=== PATIENT | male | born 1935 | race Caucasian/White ===

== ENCOUNTER 2018-02-01 15:30 | Inpatient (IN) | payer MEDICARE ==
[~2018-02-01] VITALS: Ht 182.9 cm; Wt 109.3 kg
[~2018-02-01 15:30] MED LIST: ALLOPURINOL100 MG PO; ASPIRIN325 MG PO; ASPIRIN81 MG PO; ATORVASTATIN CA10 MG PO; BACTRIM DS TAB1 EACH PO; COUMADIN5 MG PO; DIFLUCAN200 MG PO; FEOSOL45 MG PO; FERROUS GLUCON324 M1 PO; FINASTERIDE5 MG PO; FLOMAX0.4 MG PO; FUROSEMIDE40 MG PO; GLIMEPIRIDE2 MG PO; KEFLEX500 MG PO; LISINOPRIL10 MG PO; METOPROLOL TART25 MG PO; MINOCYCLINE HCL50 MG PO; NIACIN500 M2 PO; PIOGLITAZONE HC45 MG PO; POTASSIUM CHLO10 ME1 PO; RESPIMAT; TRICOR145 MG PO; TYLENOL WITH C1 EACH PO; VITAMIN D250000 UNIT
--- OUTSIDE RECORDS SUMMARY | 2018-02-01 15:33 | XMS REPORT | Continuity of Care Document ---
Author Author [employer] Address Unknown Phone Unavailable Problems Problem Status Onset Date Classification Date Reported Comments Source HOSPITAL D/C FOLLOW UP Active 01/23/2018 [facility] SOB/CP Active 01/07/2018 [facility] AORTIC VALVE STENOSIS CRITICAL Active 01/07/2018 [facility] Medications Medication Details Route Status Patient Instructions Ordering Provider Order Date Source Allergies, Adverse Reactions, Alerts Substance Category Reaction Severity Reaction type Status Date Reported Comments Source iodine topical Assertion Drug allergy Active [facility] Post Immunizations Immunization Date Given Site Status Last Updated Comments Source tuberculin purified protein derivative 02/05/2006 Left Arm completed [facility] Post pneumococcal 23-valent vaccine 02/05/2006 Right arm completed Besser [facility] Results Order Name Results Value Reference Range Date Interpretation Comments Source Abdomen/Pelvis wo IV contrast CT Abdomen/Pelvis wo IV contrast CT EXAM: CT ABDOMEN AND PELVIS WITHOUT CONTRAST DATE: 01/18/2018 at 1034 hours INDICATION: - right groin hematoma and concern for retroperitoneal hematoma ADDITIONAL INFORMATION: None. COMPARISON: 01/10/2018 at 1248 hours TECHNIQUE: Volumetric CT of the abdomen and pelvis is acquired without intravenous contrast. Axial, coronal and sagittal images are provided. IV contrast: None. Enteric contrast: None. DLP: 1041.90 mGy-cm FINDINGS: Lines, tubes and hardware: * TAVR. * Pacemaker leads in the right atrium and ventricle. * Surgical lonny overlying the right abdomen and inguinal region. * Surgical clips are seen in the right inguinal region. * Cotto catheter balloon tip is in the urinary bladder lumen. Lower thorax: * Trace left pleural effusion. * Bibasilar atelectasis. Liver: Normal. Biliary tree: No intra- or extrahepatic biliary ductal dilation. Gallbladder: Normal. Pancreas: Normal. Spleen: Normal. Adrenals: Normal. Kidneys and ureters: * Bilateral probable renal cysts are again noted. * Right perirenal high density collection with peripheral calcification, likely remote hematoma is unchanged.. Bladder: * Decompressed by Cotto catheter. * Excreted material is noted from prior contrast administration. Reproductive organs: Prostatomegaly. Seminal vesicles are symmetric. Gastrointestinal tract: Stomach: Normal. Small bowel: Normal. Colon: Uninflamed diverticula (). Appendix: Normal. Peritoneum, mesentery and retroperitoneum: * No retroperitoneal hematoma. * No free air, ascites or loculated fluid. Lymph nodes: Normal. Vasculature: Aorta and branches: Vascular calcifications. IVC and veins: Normal. Portal vasculature: Normal. Bones: Regional skeleton is unchanged. Soft tissues: * Right inguinal air and high density fluid in keeping with hematoma is 10.7 x 7.2 x 4.9 cm (\R\200 mL; , ). This is contained within the left inguinal region and does not extend into the abdominopelvic cavity. * Mild soft tissue edema is noted elsewhere. IMPRESSION: 1. No retroperitoneal hematoma Right inguinal hematoma appears confined without extension into the abdominopelvic cavity. 2. No other significant change since prior exam. 3. Hardware as above. 01/18/2018 - - Read by: Walker De La Garza MD Dictated Date/time: 01/18/18 17:12 Electronically Signed by: Walker De La Garza MD 01/18/18 17:25 FINAL REPORT [facility] Chest 1view DX Chest 1view DX EXAM: XR CHEST 1 VIEW DATE: 01/18/2018 5:53 AM CDT INDICATION: hypotension - hypotension COMPARISON: January 16, 2018 TECHNIQUE: AP chest. IMPRESSION: 1. Left subclavian AICD is unchanged. 2. Stable postsurgical changes following TAVR. The cardiomediastinal silhouette is stable in size. Mildly ectatic descending thoracic aorta. 3. Bilateral prominent lung reticulations and peribronchial cuffing are without significant change, suggestive of pulmonary edema. 4. No pleural effusions pneumothorax. 01/18/2018 - - Read by: Jacque Mendoza MD Dictated Date/time: 01/18/18 09:44 Electronically Signed by: Jacque Mendoza MD 01/18/18 09:45 FINAL REPORT [facility] Chest 1view DX Chest 1view DX EXAM: XR CHEST 1 VIEW DATE: 01/16/2018 6:53 PM CDT INDICATION: Arrhythmias - s/p CHANDA COMPARISON: 02/12/2018 TECHNIQUE: AP chest FINDINGS: Lines and tubes: Single-lead pacemaker and AV are visualized. Lungs and pleura: Minimal lung congestion visualized, unchanged. Heart and mediastinum: The heart size is unchanged. The mediastinal contours are normal. Bones: No acute bony abnormality is identified. IMPRESSION: No new abnormality visualized. 01/16/2018 - - Read by: Darryn Kenyon MD Dictated Date/time: 01/16/18 20:23 Electronically Signed by: Darryn Kenyon MD 01/16/18 20:24 FINAL REPORT [facility] Chest 1view DX Chest 1view DX EXAM: XR CHEST 1 VIEW DATE: 01/16/2018 3:28 PM CDT INDICATION: Heart failure - S/P chanda COMPARISON: January 07, 2018 TECHNIQUE: AP chest FINDINGS: Lines and tubes: Pacemaker again visualized, unchanged. Lungs and pleura: Mild lung congestion visualized. Heart and mediastinum: The heart size is enlarged, unchanged. The mediastinal contours are normal. Bones: No acute bony abnormality is identified. IMPRESSION: Mild lung congestion and cardiomegaly. 01/16/2018 - - Read by: Darryn Kenyon MD Dictated Date/time: 01/16/18 17:57 Electronically Signed by: Darryn Kenyon MD 01/16/18 17:58 FINAL REPORT [facility] Abdomen AP DX Abdomen AP DX EXAM: XR ABDOMEN 1 VIEW DATE: 01/15/2018 7:51 PM CDT INDICATION: - constipation COMPARISON: CTA of the chest abdomen and pelvis from 01/10/2018 at 1248 hours TECHNIQUE: AP abdomen DISCUSSION: The costophrenic angles are sharp. No focal opacity seen in the lung bases. Gas-filled loops of bowel are present in a nonobstructive pattern. A moderate amount of stool is seen within the ascending colon. A large thin-walled calcific focus is seen in the right renal fossa. This was described on the CTA of the chest, abdomen and pelvis. Smaller calcifications are seen adjacent to this focus. No acute bony abnormality is seen. IMPRESSION: 1. Thin-walled calcific focus in the right renal fossa which may represent an old hematoma. 2. Moderate amount of stool within the ascending colon. 3. Nonobstructive bowel gas pattern. 01/15/2018 - - Read by: Claribel Posadas DO Dictated Date/time: 01/15/18 19:51 Electronically Signed by: Claribel Posadas DO 01/15/18 19:58 FINAL REPORT [facility] Heart/coronary art TAVR CTA Heart/coronary art TAVR CTA EXAM: CARDIAC COMPUTED TOMOGRAPHY ANGIOGRAPHY DATE: January 10, 2018 INDICATION: Aortic stenosis. COMPARISON: None TECHNIQUE: Contrast imaging was performed on a Maik [address] scanner utilizing a single breath hold. Retrospective ECG gating was performed. Images were reformatted at 0.5 mm intervals and sent to an independent workstation for interpretation. 125 ml of Visipaque 320 IV contrast was delivered via an 18 gauge IV catheter utilizing a power injector at 5 cc/sec and followed by 50 cc of normal saline bolus as a chaser. OVERALL STUDY QUALITY: Good FINDINGS: Aortic valve: Trileaflet, heavily and symmetrically calcified. Aortic valve area: 1.1 sq cm. Coronary Arteries: This patient has a right dominant system with the origin of the coronary arteries being normal. Left main: Normal caliber vessel, which contains calcified atheroma of the proximal and distal segments. There is less than 50% stenosis of the distal segment of the left main, just prior to the bifurcation to the LAD and left circumflex arteries. LAD: Normal caliber vessel giving rise to diagonal branches. The vessel displays a stent deployed over extensively calcified atheroma of the the proximal segment, without evidence of significant in-stent restenosis. LAD distal to the stent contains a few scattered calcified atheroma, none of them resulting into a flow-limiting stenosis. LCx: Normal caliber, nondominant vessel, giving rise to obtuse marginal branch. The vessel contains diffuse, mostly calcified atheroma, not resulting into a flow-limiting stenosis. RCA: Normal caliber vessel, which bifurcates into the PDA posterolateral branches. There is a patent stent noted at the distal segment of the vessel, just cranial to the bifurcation. There are diffusely distributed, primarily calcified atheroma, throughout entire length of the vessel, without resulting into a flow-limiting stenosis. Myocardium Appearance \T\ Function: Left ventricle normal in size, with mild impairment of systolic function. An AICD lead is noted in the right heart chambers. Ejection Fraction: 42% CZQ=574 cc ESV=82 cc SV=59 cc Lung ordoñez to the extent visualized in limited study: Please see radiologist interpretation for extracardiac findings. IMPRESSION: Aortic valve disease. Coronary artery disease, status post PCI of the LAD and RCA, without evidence of flow-limiting stenosis. 01/09/2018 - - Read by: Braden Lee MD Dictated Date/time: 01/10/18 17:02 Electronically Signed by: Braden Lee MD 01/10/18 17:20 FINAL REPORT [facility] Chest/Abd/Pelvis TAVR CTA Chest/Abd/Pelvis TAVR CTA EXAM: VIR CT angiogram thorax abdomen and pelvis. TAVR protocol INDICATION: 82 years old Male with aortic stenosis presents for a CT angiogram. TECHNIQUE: Following the administration of intravenous contrast, 3 mm slices from the thoracic inlet through the pubic symphysis were obtained in arterial phase. Images are reviewed on 3D workstation. COMPARISON: None FINDINGS: Vascular Measurements: Ascending aorta: 33 mm x 33 mm Aortic arch: 34 mm x 32 mm Mid-descending thoracic aorta: 26 mm x 26 mm Aorta at diaphragm: 26 mm x 25 mm Aorta at celiac axis: 25 mm x 23 mm Aorta at superior mesenteric artery: 22 mm x 21 mm Mid-infrarenal aorta: 17 mm x 16 mm Right common iliac artery: 12 mm x 11.3 mm Right external iliac artery: 8.8 mm x 8.8 mm Right common femoral artery: 8.8 mm x 8.8 mm Left common iliac artery: 13 mm x 11.2 mm Left external iliac artery: 7 mm x 7 mm Left common femoral artery: 10 mm x 8.1 mm Right subclavian artery: 7 mm x 7.3 mm Left subclavian artery: 7.0 mm x 7.1 mm Calcific scores: Ascending aorta: 0 Aortic arch: 1 Descending thoracic aorta: 1 Aorta at diaphragm: 1 Suprarenal abdominal aorta: 1 Infrarenal abdominal aorta: 2 0 :none 1 :punctate calcifications 2 : <50% of vessel circumference is confluent calcification 3 : >50% of vessel circumference is confluent calcification Other vascular findings: Ascending aorta: Unremarkable Aortic arch: Unremarkable, branches appear normal Descending aorta: Unremarkable Abdominal aorta: Unremarkable Celiac artery: Unremarkable, branches appear normal Superior mesenteric artery: Unremarkable, branches appear normal Inferior mesenteric artery: Unremarkable Renal arteries: Unremarkable Bilateral common iliac, internal and external iliac, common femoral arteries: Unremarkable Nonvascular findings: Cardiovascular: The pulmonary arteries are well seen through the segmental level. No cardiomegaly. No pericardial effusion. Lymph Nodes: No adenopathy by CT size criteria. Mediastinum: No significant abnormality. Excessive fat in the mediastinum. Lungs demonstrate minimal dependent changes Hepatobiliary: Normal Gallbladder: Normal Pancreas: Unremarkable Spleen: Unremarkable Suprarenal glands: Unremarkable Kidneys: Bilateral multiple large renal cysts. 10 x 4.3 cm cystic structure with wall calcification anterior to the right kidney. Bladder: Normal. Reproductive organs: Unremarkable Gastrointestinal tract: Stomach: Normal. Small bowel: Normal. Colon: Normal. Peritoneum, mesentery and retroperitoneum: No free air, ascites or loculated fluid. Lymph nodes: Normal. Bones: No acute abnormality. Soft tissues: Normal. IMPRESSION: 1. CTA performed for TAVR planning, with measurements as indicated above. 2. Multiple renal cysts bilaterally. 3. Cystic structure anterior to the right kidney with calcified hernandez, may represent a old hematoma. I have reviewed these images and agree with the above findings. 01/09/2018 - - Read by: Fletcher De Dios MD Dictated Date/time: 01/10/18 17:37 Electronically Signed by: Fletcher De Dios MD 01/10/18 17:57 FINAL REPORT [facility] Retroperitoneal limited US Retroperitoneal limited US EXAM: US RENAL DATE: 01/08/2018 4:34 PM CDT INDICATION: Renal insufficiency - ckd ADDITIONAL INFORMATION: None. COMPARISON: February 08, 2012 TECHNIQUE: Multiplanar grayscale and color Doppler ultrasound of the kidneys and urinary bladder. DISCUSSION: Right kidney: Hydronephrosis: None. Size: 1.5 x 6.5 x 9.4 cm. Echogenicity: Normal. Calculi: None. Cysts: Multiple simple cysts Masses: None. Left kidney: Hydronephrosis: None. Size: 14.9 x 3.6 x 10 point set cm. Echogenicity: Normal. Calculi: None. Cysts: Multiple simple cysts Masses: None. Bladder: Normal. IMPRESSION: 1. Polycystic kidneys containing multiple simple renal cysts. Largest cyst measures 5 cm involving the left kidney. 01/08/2018 - - Read by: Kodi Trevino MD Dictated Date/time: 01/09/18 07:45 Electronically Signed by: Kodi Trevino MD 01/09/18 07:48 FINAL REPORT [facility] Chest 1view DX Chest 1view DX EXAM: XR CHEST 1 VIEW DATE: 01/07/2018 11:22 AM CDT INDICATION: - Chest pain, SOB COMPARISON: Chest x-ray 03/09/2014 TECHNIQUE: AP chest. UT SECTION: ER FINDINGS: Lines, tubes and hardware: Note made of single lead AICD device. Lungs and pleura: No focal consolidation. No pleural effusion or pneumothorax. Heart and mediastinum: The heart size is normal for technique. Note made of tortuous aorta with aortic arch calcifications. Bones: No acute abnormality. IMPRESSION: No acute radiographic abnormality of the chest. 01/07/2018 - - This report was dictated by a Senior Technical Analyst/Fellow. I have personally reviewed the images as well as the Resident's interpretation and agree with the findings. Read by: Sukumar Koenig MD Resident: Sukumar Koenig MD Dictated Date/time: 01/07/18 11:39 Electronically Signed by: Terry Domingo MD 01/07/18 11:51 FINAL REPORT [facility] Vital Signs Vital Sign Value Date Comments Source Encounters Location Location Details Encounter Type Encounter Number Reason For Visit Attending Provider ADM Date DC Date Status Source [facility] Outpatient Imaging - Post Outpt Diag Services [id number] Colby Arambula 03/09/2014 03/10/2014 [facility] Post Outpatient [id number] GEORGE GAMBOA 01/29/2018 [facility] Outpatient [id number] GEORGE GAMBOA 02/19/2018 [facility] Procedures Procedure Code Date Perfomer Comments Source
--- OUTSIDE RECORDS SUMMARY | 2018-02-01 15:33 | XMS REPORT | Summary of Care ---
Author Organization Unknown Address Unknown Phone Unavailable Encounter HQ Syedsruthir_marina([facility]) [id number] Date(s): 03/09/14 - 03/09/14 [facility] Outpatient Imaging - [address] [address]- [place] Discharge Disposition: Home Physician Attending: Colby Arambula MD Reason for Visit 786.5 - CHEST PAIN Problem List No data available for this section Allergies, Adverse Reactions, Alerts Substance Reaction Severity Status iodine topical Active Medications No data available for this section Medications Administered During Your Visit No data available for this section Immunizations Vaccine Date Refusal Reason pneumococcal 23-valent vaccine 02/05/06 tuberculin purified protein derivative 02/05/06
[2018-02-01 17:39] LABS: BASOPHILS % 0.2 % (0.0-1.0); EOSINOPHILS # (AUTO) 0.2 (0.0-0.4); EOSINOPHILS % 4.2 % (0.0-6.0); HEMATOCRIT 29.7 % (38.2-49.6); HEMOGLOBIN 9.9 g/dL (14.0-18.0); LYMPHOCYTES # (AUTO) 1.2 (1.0-3.2); LYMPHOCYTES % 21.5 % (18.0-39.1); MEAN CORPUSCULAR HEMOGLOBIN 31.7 pg (28-32); MEAN CORPUSCULAR HGB CONC 33.3 g/dL (31-35); MEAN CORPUSCULAR VOLUME 95.2 fL (81-99); MONOCYTES # (AUTO) 0.7 (0.2-0.8); MONOCYTES % 12.5 % (4.4-11.3); NEUTROPHILS # (AUTO) 3.3 (2.1-6.9); NEUTROPHILS % 60.9 % (38.7-80.0); PLATELET COUNT 244 x10e3/uL (140-360); RED BLOOD COUNT 3.12 x10e6/uL (4.3-5.7); RED CELL DISTRIBUTION WIDTH 17.3 % (11.7-14.4)
[2018-02-01 17:47] LABS: INR 1.04; PROTHROMBIN TIME 14.5 seconds (11.9-14.5)
[2018-02-01 17:48] LABS: PARTIAL THROMBOPLASTIN TIME 28.2 seconds (23.8-35.5)
[2018-02-01 17:56] LABS: ALBUMIN/GLOBULIN RATIO 0.7 (0.8-2.0); ANION GAP 21.1 mmol/L (8-16); CALCIUM 9.6 mg/dL (8.4-10.2); CREATININE, SERUM 1.64 mg/dL (0.72-1.25); POTASSIUM 3.1 mmol/L (3.5-5.1)
[2018-02-01 18:04] LABS: CREATINE KINASE MB 0.7 ng/mL (0-5.0)
[2018-02-01] MEDS ORDERED: ASPIRIN 81 MG CHEW TAB PO ONE (18:30)
[2018-02-01] MEDS ORDERED: POTASSIUM CHLORIDE 20 MEQ TAB CR PO STA (18:43)
[2018-02-01] MEDS ORDERED: AMLODIPINE BESYL5 MG PO (18:52)
[2018-02-01] MEDS ORDERED: DOCUSATE SODIU100 MG PO (18:52)
[2018-02-01] MEDS ORDERED: PRANDIN1 MG PO (18:52)
[2018-02-01] MEDS ORDERED: TORSEMIDE10 MG PO (18:52)
[2018-02-01] MEDS ORDERED: CLOPIDOGREL75 MG PO (18:52)
--- NOTE | 2018-02-01 19:23 | Diagnostic Imaging Report ---
EXAMINATION: CHEST SINGLE (PORTABLE) INDICATION: Low blood pressure. ^CHEST PAIN ^[id number] ^1716 ^Y COMPARISON: Chest radiograph 06/06/2016 FINDINGS: AP view TUBES and LINES: Single-lead AICD. LUNGS: Lungs are well inflated. Lungs are clear. There is no evidence of pneumonia or pulmonary edema. PLEURA: No pleural effusion or pneumothorax. HEART AND MEDIASTINUM: The cardiomediastinal silhouette is unremarkable. BONES AND SOFT TISSUES: No acute osseous lesion. Soft tissues are unremarkable. UPPER ABDOMEN: No free air under the diaphragm. IMPRESSION: No acute thoracic abnormality. Signed by: DR. Jr Reid MD on 02/01/2018 7:20 PM
--- OUTSIDE RECORDS SUMMARY | 2018-02-01 19:33 | XMS REPORT ---
Author Author [facility] Address Unknown Phone Unavailable Care Team Providers Care Chemical Preparer Name Role Phone uLiza BAXTER Unavailable Unavailable Problems This patient has no known problems. Allergies, Adverse Reactions, Alerts This patient has no known allergies or adverse reactions. Medications This patient has no known medications. Results Test Description Test Time Test Comments Text Results Atomic Results Result Comments CHEST SINGLE (PORTABLE) 2018-02-01 19:19:00 [place] [address] Patient Name: KIMBERLEE PUJA MR #: [id number] : 1935 Age/Sex: 82/M Req #: [id number] Adm Physician: Ordered by: ANNE BAXTER MD Report #: [id number] Location: ER Room/Bed: Procedure: [id number] DX/CHEST SINGLE (PORTABLE) Exam Date: 02/01/18 Exam Time: 1716 REPORT STATUS: Signed EXAMINATION: CHEST SINGLE (PORTABLE) IND ICATION: Low blood pressure. CHEST PAIN [id number] 1716 Y COMPARISON: Chest radiograph 06/06/2016 FINDINGS: AP view TUBES and LINES: Single-lead AICD. LUNGS: Lungs are well inflated. Lungs are clear. There is no evidence of pneumonia or pulmonary edema. PLEURA: No pleural effusion or pneumothorax. HEART AND MEDIASTINUM: The cardiomediastinal silhouette is unremarkable. BONES AND SOFT TISSUES: No acute osseous lesion. Soft tissues are unremarkable. UPPER ABDOMEN: No free air under the diaphragm. IMPRESSION: No acute thoracic abnormality. Signed by: DR. Jr Marino MD on 02/01/2018 7:20 PM Dictated By: JR MARINO MD 19 Transcribed By: ADALID on 02/01/181919 COPY TO: ANNE BAXTER MD
[2018-02-01 20:17] VITALS: BP 124/67
[2018-02-01 20:20] VITALS: BP 124/67
[2018-02-01 20:30] VITALS: BP 124/67
[2018-02-01] MEDS: ATORVASTATIN 40 MG TAB PO SCH (21:19)
[2018-02-01] MEDS: FERROUS SULFATE 325 MG TAB PO SCH (21:19)
[2018-02-02] VITALS (8 sets, daily range): BP systolic 91–132; BP diastolic 52–64
[2018-02-02 02:53] LABS: CREATINE KINASE MB 0.6 ng/mL (0-5.0)
[2018-02-02 06:36] LABS: BASOPHILS % 0.4 % (0.0-1.0); EOSINOPHILS # (AUTO) 0.2 (0.0-0.4); EOSINOPHILS % 4.1 % (0.0-6.0); HEMOGLOBIN 8.7 g/dL (14.0-18.0); LYMPHOCYTES # (AUTO) 1.2 (1.0-3.2); LYMPHOCYTES % 25.2 % (18.0-39.1); MEAN CORPUSCULAR HGB CONC 32.2 g/dL (31-35); MEAN CORPUSCULAR VOLUME 96.1 fL (81-99); MONOCYTES # (AUTO) 0.6 (0.2-0.8); MONOCYTES % 13.9 % (4.4-11.3); NEUTROPHILS # (AUTO) 2.6 (2.1-6.9); NEUTROPHILS % 55.5 % (38.7-80.0); PLATELET COUNT 174 x10e3/uL (140-360); RED BLOOD COUNT 2.81 x10e6/uL (4.3-5.7)
[2018-02-02 06:53] LABS: ALBUMIN 2.6 g/dL (3.5-5.0); ALBUMIN/GLOBULIN RATIO 0.8 (0.8-2.0); ANION GAP 16.2 mmol/L (8-16); CALCIUM 8.9 mg/dL (8.4-10.2); CREATININE, SERUM 1.39 mg/dL (0.72-1.25); POTASSIUM 3.2 mmol/L (3.5-5.1)
[2018-02-02] MEDS: CEFTRIAXONE SOD 1 GM VIAL IV SCH (08:05)
[2018-02-02] MEDS: VANCOMYCIN 1GM/NS 250 ML 250 ML IV SCH ×2 (08:15→18:53)
[2018-02-02] MEDS: FENOFIBRATE 145 MG TAB PO SCH (08:22)
[2018-02-02] MEDS: ASPIRIN 81 MG CHEW TAB PO SCH (08:22)
[2018-02-02] MEDS: REPAGLINIDE 1 MG TAB PO SCH (08:22)
[2018-02-02] MEDS: FINASTERIDE 5 MG TAB PO SCH (08:22)
[2018-02-02] MEDS: FERROUS SULFATE 325 MG TAB PO SCH ×2 (08:22→17:40)
[2018-02-02] MEDS: DOCUSATE SODIUM 100 MG CAP PO SCH ×2 (08:22→17:40)
[2018-02-02] MEDS: ALLOPURINOL 100 MG TAB PO SCH (08:22)
[2018-02-02] MEDS: METOPROLOL TARTRATE 25 MG TAB PO SCH ×2 (08:22→17:40)
[2018-02-02] MEDS: CLOPIDOGREL BISULFATE 75 MG TAB PO SCH (08:22)
[2018-02-02] MEDS: TAMSULOSIN HCL 0.4 MG CAP PO SCH (08:22)
[2018-02-02] MEDS ORDERED: NON-FORMULARY MEDICATION (Ferrous Gluconate 324 MG) PO SCH (09:00)
[2018-02-02] MEDS ORDERED: AMLODIPINE BESYLATE 5 MG TAB PO SCH (09:00)
[2018-02-02] MEDS ORDERED: FENOFIBRATE 145 MG TAB PO SCH (09:00)
[2018-02-02] MEDS ORDERED: TORSEMIDE 10 MG TAB PO SCH (09:00)
[2018-02-02] MEDS ORDERED: ATORVASTATIN 10 MG TAB PO SCH (09:00)
[2018-02-02 10:59] LABS: CREATINE KINASE MB 0.7 ng/mL (0-5.0)
[2018-02-02] MEDS: ATORVASTATIN 40 MG TAB PO SCH (21:20)
[2018-02-03] VITALS (15 sets, daily range): BP systolic 80–127; BP diastolic 49–72
[2018-02-03 06:21] LABS: BASOPHILS % 0.5 % (0.0-1.0); EOSINOPHILS # (AUTO) 0.2 (0.0-0.4); EOSINOPHILS % 4.8 % (0.0-6.0); HEMATOCRIT 27.8 % (38.2-49.6); HEMOGLOBIN 9.1 g/dL (14.0-18.0); LYMPHOCYTES % 22.5 % (18.0-39.1); MEAN CORPUSCULAR HEMOGLOBIN 31.2 pg (28-32); MEAN CORPUSCULAR HGB CONC 32.7 g/dL (31-35); MEAN CORPUSCULAR VOLUME 95.2 fL (81-99); MONOCYTES # (AUTO) 0.6 (0.2-0.8); MONOCYTES % 13.4 % (4.4-11.3); NEUTROPHILS # (AUTO) 2.6 (2.1-6.9); NEUTROPHILS % 57.9 % (38.7-80.0); PLATELET COUNT 171 x10e3/uL (140-360); RED BLOOD COUNT 2.92 x10e6/uL (4.3-5.7); RED CELL DISTRIBUTION WIDTH 16.8 % (11.7-14.4)
[2018-02-03] MEDS: CEFTRIAXONE SOD 1 GM VIAL IV SCH (06:39)
[2018-02-03 06:48] LABS: ALBUMIN 2.5 g/dL (3.5-5.0); ALBUMIN/GLOBULIN RATIO 0.8 (0.8-2.0); ANION GAP 15.2 mmol/L (8-16); CALCIUM 8.9 mg/dL (8.4-10.2); CREATININE, SERUM 1.25 mg/dL (0.72-1.25); POTASSIUM 3.2 mmol/L (3.5-5.1)
[2018-02-03] MEDS: TAMSULOSIN HCL 0.4 MG CAP PO SCH (08:55)
[2018-02-03] MEDS: FERROUS SULFATE 325 MG TAB PO SCH ×2 (08:55→17:51)
[2018-02-03] MEDS: ASPIRIN 81 MG CHEW TAB PO SCH (08:55)
[2018-02-03] MEDS: DOCUSATE SODIUM 100 MG CAP PO SCH ×2 (08:55→17:51)
[2018-02-03] MEDS: METOPROLOL TARTRATE 25 MG TAB PO SCH ×2 (08:56→17:51)
[2018-02-03] MEDS: FINASTERIDE 5 MG TAB PO SCH (08:56)
[2018-02-03] MEDS: REPAGLINIDE 1 MG TAB PO SCH (08:56)
[2018-02-03] MEDS: CLOPIDOGREL BISULFATE 75 MG TAB PO SCH (08:56)
[2018-02-03] MEDS: FENOFIBRATE 145 MG TAB PO SCH (08:56)
[2018-02-03] MEDS: ALLOPURINOL 100 MG TAB PO SCH (08:56)
[2018-02-03] MEDS: VANCOMYCIN 1GM/NS 250 ML 250 ML IV SCH ×2 (10:15→19:38)
--- NOTE | 2018-02-03 16:21 | Progress Note ---
DATE: February 03, 2018 CARDIOLOGY PROGRESS NOTE SUBJECTIVE: No major events overnight. Feels better today. Dizziness is much improved. No chest pain or shortness of breath. No fevers or chills. OBJECTIVE VITAL SIGNS: Temperature 98.2, pulse 73, respiratory rate 18, blood pressure 124/62 supine and 88/49 upon standing, satting 100% on room air. GENERAL: Elderly white man in no acute distress. CARDIOVASCULAR: Regular rate and rhythm. No murmurs, rubs, or gallops. 2/6 systolic murmur right upper sternal border. Right groin with swelling and lonny in place, mild erythema. Mildly tender to palpation. No pulsatile mass or bruit. LUNGS: Clear to auscultation bilaterally. ABDOMEN: Obese, soft, and nontender. No masses. NEURO AND PSYCH: Alert and oriented to person, place and time. Normal affect. LABORATORY DATA: Reviewed. MEDICATIONS: Reviewed. Continue aspirin and Plavix, holding torsemide given orthostatic hypotension. TELEMETRY DATA: Reviewed, shows normal sinus rhythm, first degree AV block. ASSESSMENT AND PLAN 1. Aortic stenosis, status post transfemoral aortic valve replacement approximately 2 weeks ago. 2. Transcatheter aortic valve replacement complicated by right groin hematoma, status post evacuation vascular surgery. 3. Orthostatic hypotension. PLAN: Echocardiogram reviewed, shows normal TAVR function. Right groin likely resolving hematoma. No clinical suspicion of pseudoaneurysm or any major vascular complications at this time. Patient has a followup with his TAVR team on Sunday. We will get further assessment with ultrasound at that time. His orthostatic hypotension is improved, though still present. Continue to hold torsemide. Once patient resumes his normal diet and fluid intake, this should continue to improve. I gave patient precautions about care while changing positions. Once patient's orthostatics improved, patient is okay to be discharged from a cardiovascular standpoint. Thank you for this consult. Job#: [id number]
[2018-02-03] MEDS: ATORVASTATIN 40 MG TAB PO SCH (21:14)
[2018-02-04] VITALS (8 sets, daily range): BP systolic 98–122; BP diastolic 55–64
[2018-02-04] MEDS: CEFEPIME HCL 1 GM VIAL IV SCH ×3 (05:56→21:08)
[2018-02-04] MEDS: VANCOMYCIN 1GM/NS 250 ML 250 ML IV SCH (08:10)
[2018-02-04] MEDS: REPAGLINIDE 1 MG TAB PO SCH (10:18)
[2018-02-04] MEDS: FERROUS SULFATE 325 MG TAB PO SCH ×2 (10:18→17:40)
[2018-02-04] MEDS: CLOPIDOGREL BISULFATE 75 MG TAB PO SCH (10:18)
[2018-02-04] MEDS: FINASTERIDE 5 MG TAB PO SCH (10:18)
[2018-02-04] MEDS: FENOFIBRATE 145 MG TAB PO SCH (10:18)
[2018-02-04] MEDS: ALLOPURINOL 100 MG TAB PO SCH (10:18)
[2018-02-04] MEDS: METOPROLOL TARTRATE 25 MG TAB PO SCH (10:18)
[2018-02-04] MEDS: DOCUSATE SODIUM 100 MG CAP PO SCH ×2 (10:18→17:40)
[2018-02-04] MEDS: TAMSULOSIN HCL 0.4 MG CAP PO SCH (10:18)
[2018-02-04] MEDS: ASPIRIN 81 MG CHEW TAB PO SCH (10:18)
--- NOTE | 2018-02-04 14:54 | Progress Note ---
DATE: February 04, 2018 CARDIOLOGY PROGRESS NOTE SUBJECTIVE: The patient is feeling overall better. Mildly dizzy when he stands up. Mild discomfort at the right groin and behind the right knee. No chest pain. Otherwise, no other events were noted. OBJECTIVE VITAL SIGNS: Temperature 97.3, heart rate 74, respirations 20, blood pressure 122/63 supine. Blood pressure is 98/55 sitting. Oxygen saturation is 100% on 2 liters nasal cannula. GENERAL: He is a well-appearing, elderly man lying in bed. HEAD: Head is normocephalic and atraumatic. EYES: The extraocular movements are intact. Conjunctivae are clear. NECK: No jugular venous distention. CARDIOVASCULAR: Regular rate and rhythm. Mild systolic murmur heard best at the right upper sternal border. Right groin with swelling and mild erythema, mildly tender to palpation. No pulsatile mass or bruit. LUNGS: Clear to auscultation. ABDOMEN: Soft, nontender, nondistended. No masses. NEUROLOGIC: No focal deficits noted. He is alert and oriented. LABORATORY DATA: Reviewed. MEDICATIONS: All reviewed, including aspirin and Plavix. TELEMETRY DATA: Normal sinus rhythm, 1st-degree AV block. ASSESSMENT 1. Aortic stenosis, status post transcatheter aortic valve replacement. 2. Right groin hematoma, status post evacuation. 3. Orthostatic hypotension. RECOMMENDATIONS: This patient's blood pressure has improved. Mildly orthostatic still upon sitting. The patient is on tamsulosin and metoprolol. Reasonable to discontinue the metoprolol for now to allow blood pressure to increase. His torsemide was discontinued, which will also improve his orthostasis. Echocardiogram showed normal TAVR function. The patient has a right groin resolving hematoma. Reasonable to assess with an ultrasound at this point in time and infectious disease consultation. Thank you for this consultation. We will follow along with you. Job#: [id number]
--- NOTE | 2018-02-04 16:13 | Diagnostic Imaging Report ---
EXAM: US EXTREMITY NIX NON-VAS DATE: 02/04/2018 3:04 PM INDICATION: ^RIGHT GROIN EDEMA AND REDNESS R/O ABCESS COMPARISON: None FINDINGS: Limited sonographic evaluation right inguinal region. There is a 19 x 9 x 13 mm heterogeneous, but predominantly hypoechoic region in the subcutaneous tissues in area of interest with no internal flow. Of note, no surrounding hyperemia noted. IMPRESSION: Probable resolving hematoma. Abscess felt less likely, but not entirely excluded. Signed by: Dr. Kb Larson MD on 02/04/2018 4:09 PM
[2018-02-04] MEDS ORDERED: LEVOFLOXACIN 500 MG TAB PO SCH (17:00)
--- NOTE | 2018-02-04 18:11 | Consultation ---
DATE OF CONSULTATION: February 04, 2018 REASON FOR CONSULTATION: Cellulitis of the groin. HISTORY OF PRESENT ILLNESS: This patient is a very pleasant 82-year-old white male with history of obesity. Apparently [facility] and he had a history of aortic stenosis. The patient has history of hypertension, diabetes mellitus, congestive heart failure, coronary artery disease, seizure disorder, liver disease, hyperlipidemia, DVT/PE, chronic kidney disease, gout, hypercholesterolemia, congestive heart failure, benign prostatic hypertrophy, DVT, sleep apnea, hemorrhoidectomy, kidney surgery, right leg surgery cardiac stent placement and aortic valve replacement, which was done apparently recently through the right groin. He came back because he was not feeling well. It was noted that he had redness and swelling of the right groin, and so he is being admitted and started on antibiotic. The patient was just feeling dizzy. When he first came his blood pressure was low. The patient had aortic valve replacement nine days ago apparently complained by development of hematoma which was evacuated surgically. He does have staple there. Now, he is coming back with feeling weak, and there is noted redness. Patient was admitted and infectious disease was consulted. REVIEW OF SYSTEMS: He is not a good source of information. He is just weak overall. HEENT: Negative. PULMONARY: Negative CARDIAC: Negative. : Negative. LABORATORY DATA: White count 5.4, hemoglobin 9, hematocrit 29, sodium 139, potassium 3.2, creatinine 1.25. INR 1.04. PTT of 98. PHYSICAL EXAMINATION: GENERAL: Alert, oriented, does not seem to be in any acute distress. VITAL SIGNS: Stable, currently afebrile. HEENT: Not icteric. NECK: Supple. CHEST: Clear bilaterally. HEART: S1 and S2, no murmur. ABDOMEN: Soft. Bowel sounds present. No tenderness. No hepatosplenomegaly. EXTREMITIES: He does have redness and erythema noted in the right groin area. IMPRESSION: Cellulitis of the groin. Patient had recently a hematoma which was evacuated. I agree with vancomycin. Will follow levels. Will discontinue Rocephin and add cefepime 1 gram q.8 h.. Will obtain ultrasound to rule out an abscess of the soft tissue. Obtain blood cultures. Complicated medical history is all mentioned above, seems to be stable. Former history of DVT, history of PE, has congestive heart failure, history of seizure disorder, history of liver disease, history of hyperlipidemia. Will follow. Job#: [id number] GH
[2018-02-04] MEDS: ENOXAPARIN SODIUM INJ 100 MG/ML SYR SC SCH (21:08)
[2018-02-04] MEDS: ATORVASTATIN 40 MG TAB PO SCH (21:08)
[2018-02-05] VITALS (8 sets, daily range): BP systolic 83–166; BP diastolic 53–77
[2018-02-05] MEDS: CEFEPIME HCL 1 GM VIAL IV SCH ×3 (05:30→21:31)
[2018-02-05] MEDS: FINASTERIDE 5 MG TAB PO SCH (09:00)
[2018-02-05] MEDS: FERROUS SULFATE 325 MG TAB PO SCH ×2 (09:00→16:47)
[2018-02-05] MEDS: ASPIRIN 81 MG CHEW TAB PO SCH (09:00)
[2018-02-05] MEDS: TAMSULOSIN HCL 0.4 MG CAP PO SCH (09:00)
[2018-02-05] MEDS: DOCUSATE SODIUM 100 MG CAP PO SCH ×2 (09:00→16:46)
[2018-02-05] MEDS: REPAGLINIDE 1 MG TAB PO SCH (09:00)
[2018-02-05] MEDS: ENOXAPARIN SODIUM INJ 100 MG/ML SYR SC SCH ×2 (09:00→21:31)
[2018-02-05] MEDS: ALLOPURINOL 100 MG TAB PO SCH (09:00)
[2018-02-05] MEDS: CLOPIDOGREL BISULFATE 75 MG TAB PO SCH (09:00)
[2018-02-05] MEDS: FENOFIBRATE 145 MG TAB PO SCH (09:00)
[2018-02-05] MEDS ORDERED: ONDANSETRON HCL INJ 2 MG/ML VIAL IV STA (14:17)
[2018-02-05] MEDS ORDERED: ONDANSETRON HCL INJ 2 MG/ML VIAL IV PRN (14:30)
[2018-02-05] MEDS: VANCOMYCIN 1GM/NS 250 ML 250 ML IV SCH (14:32)
--- NOTE | 2018-02-05 16:27 | Progress Note ---
DATE: February 05, 2018 CARDIOLOGY PROGRESS NOTE SUBJECTIVE: The patient denies chest pain or shortness of breath. OBJECTIVE VITAL SIGNS: Temperature 97.6 degrees, pulse 114, respiratory rate 18, blood pressure 90/53, oxygen saturation 97% on 2 L nasal cannula. GENERAL: Elderly man, no acute distress. Awake and alert. LUNGS: Clear to auscultation bilaterally. No wheezes or crackles. CARDIOVASCULAR: Normal rate, regular rhythm. Systolic murmur at the right upper sternal border. Right groin with erythema and swelling. No drainage is noted. [place] remain. ABDOMEN: Soft. Nontender. EXTREMITIES: There is 1+ pitting edema on the right. CARDIAC MEDICINES 1. Enoxaparin 100 mg subcutaneous q.12 h. 2. Fenofibrate 145 mg p.o. daily. 3. Plavix 75 mg p.o. daily. 4. Aspirin 81 mg p.o. daily. 5. Atorvastatin 80 mg p.o. nightly. LABS: None today. TELEMETRY: Normal sinus rhythm with PACs. IMPRESSION 1. Severe aortic stenosis, status post recent transcatheter aortic valve replacement. 2. Right groin hematoma, status post evacuation. 3. Hypotension. 4. Coronary artery disease. 5. Chronic systolic heart failure, status post implantable cardioverter-defibrillator. 6. Hypertension. 7. Hyperlipidemia. 8. Diabetes mellitus. 9. Chronic kidney disease. RECOMMENDATIONS: Antibiotics per infectious disease. Ultrasound of the right groin revealed resolving hematoma with abscess less likely. Continue wound care. The patient's blood pressure remains quite labile. All antihypertensive therapies have been discontinued. Monitor closely. Check orthostatic vitals. Continue anticoagulation given recently diagnosed right posterior tibial DVT. Monitor the patient on telemetry. Will obtain records from [facility] regarding his recent cardiac evaluation. Thank you for this consult. We will continue to follow. Job#: [id number]
[2018-02-05 16:46] LABS: BASOPHILS % 0.4 % (0.0-1.0); EOSINOPHILS # (AUTO) 0.2 (0.0-0.4); HEMATOCRIT 30.2 % (38.2-49.6); HEMOGLOBIN 9.6 g/dL (14.0-18.0); LYMPHOCYTES # (AUTO) 1.2 (1.0-3.2); LYMPHOCYTES % 20.3 % (18.0-39.1); MEAN CORPUSCULAR HEMOGLOBIN 31.4 pg (28-32); MEAN CORPUSCULAR HGB CONC 31.8 g/dL (31-35); MEAN CORPUSCULAR VOLUME 98.7 fL (81-99); MONOCYTES # (AUTO) 0.7 (0.2-0.8); MONOCYTES % 11.7 % (4.4-11.3); NEUTROPHILS # (AUTO) 3.6 (2.1-6.9); NEUTROPHILS % 63.7 % (38.7-80.0); PLATELET COUNT 182 x10e3/uL (140-360); RED BLOOD COUNT 3.06 x10e6/uL (4.3-5.7); RED CELL DISTRIBUTION WIDTH 16.9 % (11.7-14.4)
[2018-02-05] MEDS: WARFARIN SOD 5 MG TAB PO SCH (16:58)
[2018-02-05] MEDS: HYDROCODONE/APAP 10MG-325MG TAB PO PRN (21:20)
[2018-02-05] MEDS: ATORVASTATIN 40 MG TAB PO SCH (21:31)
[2018-02-06] VITALS (9 sets, daily range): BP systolic 100–149; BP diastolic 59–74
[2018-02-06] MEDS ORDERED: ACETAMINOPHEN 325 MG TAB PO PRN (02:15)
[2018-02-06] MEDS: HYDROCODONE/APAP 10MG-325MG TAB PO PRN (05:10)
[2018-02-06] MEDS: CEFEPIME HCL 1 GM VIAL IV SCH ×3 (06:00→22:00)
[2018-02-06 06:39] LABS: INR 1.2; PROTHROMBIN TIME 16.3 seconds (11.9-14.5)
[2018-02-06] MEDS: VANCOMYCIN 1GM/NS 250 ML 250 ML IV SCH (07:40)
[2018-02-06] MEDS ORDERED: MINERAL OIL 132 ML BTL PR ONE (08:00)
[2018-02-06] MEDS: ASPIRIN 81 MG CHEW TAB PO SCH (09:05)
[2018-02-06] MEDS: FERROUS SULFATE 325 MG TAB PO SCH ×2 (09:06→17:24)
[2018-02-06] MEDS: DOCUSATE SODIUM 100 MG CAP PO SCH ×2 (09:06→17:24)
[2018-02-06] MEDS: CLOPIDOGREL BISULFATE 75 MG TAB PO SCH (09:08)
[2018-02-06] MEDS: FINASTERIDE 5 MG TAB PO SCH (09:08)
[2018-02-06] MEDS: TAMSULOSIN HCL 0.4 MG CAP PO SCH (09:08)
[2018-02-06] MEDS: REPAGLINIDE 1 MG TAB PO SCH (09:08)
[2018-02-06] MEDS: FENOFIBRATE 145 MG TAB PO SCH (09:09)
[2018-02-06] MEDS: ENOXAPARIN SODIUM INJ 100 MG/ML SYR SC SCH ×2 (09:10→20:50)
[2018-02-06] MEDS: MUPIROCIN 2% OINT 22 GM TUBE TOP SCH (09:10)
[2018-02-06] MEDS: ALLOPURINOL 100 MG TAB PO SCH (09:10)
[2018-02-06] MEDS: WARFARIN SOD 5 MG TAB PO SCH (17:25)
--- NOTE | 2018-02-06 18:55 | Progress Note ---
DATE: February 06, 2018 CARDIOLOGY PROGRESS NOTE SUBJECTIVE: No major events overnight. The patient is complaining about constipation. OBJECTIVE VITAL SIGNS: Temperature 97.4, pulse 117, respiratory rate 20, blood pressure 124/63, satting 95% on 2 liters nasal cannula. GENERAL: Elderly white man, ill-appearing, obese, no acute distress. CARDIOVASCULAR: Regular rate and rhythm. Systolic murmur right upper sternal border. Right groin erythema and swelling, no drainage. [place] in place. ABDOMEN: Soft, nontender. LUNGS: Clear to auscultation bilaterally. EXTREMITIES: 1+ pitting edema bilateral lower extremities. NEURO AND PSYCH: alert and oriented to person, place and time. CARDIOVASCULAR MEDICATIONS: Reviewed. LABORATORY DATA: Reviewed. TELEMETRY DATA: Reviewed. ASSESSMENT AND PLAN 1. Aortic stenosis, status post transcatheter aortic valve replacement. 2. Right groin hematoma, status post evacuation by Vascular Surgery. 3. Hypotension. 4. Coronary artery disease. 5. Chronic systolic heart failure, status post implantable cardioverter-defibrillator. 6. right lower extremity deep vein thrombosis. 7. Hypertension. 8. Hyperlipidemia. 9. Diabetes. 10. Chronic kidney disease. RECOMMENDATIONS: The patient was started on Lovenox bridge to Coumadin for his DVT. Will stop his Plavix at this time. Continue aspirin and warfarin as Plavix was being given for his aortic valve replacement bioprosthetic valve. Continue to hold the antihypertensive medicines. His blood pressure remains borderline. Ultrasound of the groin was reviewed, shows resolving hematoma most likely. Abscess is less likely. Records from [facility] pending. Thank you for this consult. Will continue to follow. Job#: [id number] RAFAELA
[2018-02-06] MEDS: ATORVASTATIN 40 MG TAB PO SCH (22:43)
[2018-02-07] VITALS (8 sets, daily range): BP systolic 104–138; BP diastolic 57–79
[2018-02-07] MEDS: CEFEPIME HCL 1 GM VIAL IV SCH ×3 (05:33→22:19)
[2018-02-07 06:13] LABS: BASOPHILS % 0.3 % (0.0-1.0); EOSINOPHILS % 0.7 % (0.0-6.0); HEMATOCRIT 28.9 % (38.2-49.6); HEMOGLOBIN 9.4 g/dL (14.0-18.0); LYMPHOCYTES # (AUTO) 1.1 (1.0-3.2); LYMPHOCYTES % 17.8 % (18.0-39.1); MEAN CORPUSCULAR HEMOGLOBIN 31.5 pg (28-32); MEAN CORPUSCULAR HGB CONC 32.5 g/dL (31-35); MONOCYTES # (AUTO) 0.8 (0.2-0.8); MONOCYTES % 13.5 % (4.4-11.3); NEUTROPHILS # (AUTO) 4.1 (2.1-6.9); NEUTROPHILS % 66.7 % (38.7-80.0); PLATELET COUNT 157 x10e3/uL (140-360); RED BLOOD COUNT 2.98 x10e6/uL (4.3-5.7); RED CELL DISTRIBUTION WIDTH 17.6 % (11.7-14.4)
[2018-02-07] MEDS ORDERED: METHYLPREDNISOLONE SOD SUCC 40 MG/ML VIAL IV ONE (06:30)
[2018-02-07 06:35] LABS: ALBUMIN 2.3 g/dL (3.5-5.0); ALBUMIN/GLOBULIN RATIO 0.6 (0.8-2.0); CALCIUM 9.3 mg/dL (8.4-10.2); CREATININE, SERUM 1.32 mg/dL (0.72-1.25)
[2018-02-07 06:49] LABS: INR 1.52; PROTHROMBIN TIME 19.6 seconds (11.9-14.5)
[2018-02-07] MEDS: BISACODYL 5 MG TAB EC PO SCH ×3 (06:49→20:00)
[2018-02-07] MEDS: ASPIRIN 81 MG CHEW TAB PO SCH (08:30)
[2018-02-07] MEDS: VANCOMYCIN 1GM/NS 250 ML 250 ML IV SCH (08:30)
[2018-02-07] MEDS: FINASTERIDE 5 MG TAB PO SCH (08:31)
[2018-02-07] MEDS: TAMSULOSIN HCL 0.4 MG CAP PO SCH (08:31)
[2018-02-07] MEDS: DOCUSATE SODIUM 100 MG CAP PO SCH ×2 (08:31→17:26)
[2018-02-07] MEDS: ALLOPURINOL 100 MG TAB PO SCH (08:31)
[2018-02-07] MEDS: REPAGLINIDE 1 MG TAB PO SCH (08:31)
[2018-02-07] MEDS: FENOFIBRATE 145 MG TAB PO SCH (08:31)
[2018-02-07] MEDS: FERROUS SULFATE 325 MG TAB PO SCH ×2 (08:31→17:26)
[2018-02-07] MEDS: MUPIROCIN 2% OINT 22 GM TUBE TOP SCH (08:32)
[2018-02-07] MEDS: ENOXAPARIN SODIUM INJ 100 MG/ML SYR SC SCH ×2 (08:32→21:20)
--- NOTE | 2018-02-07 10:09 | Progress Note ---
DATE: February 07, 2018 CARDIOLOGY PROGRESS NOTE SUBJECTIVE: No major events overnight. Unable to have a bowel movement yesterday despite enema. Feels a little bit better today. OBJECTIVE VITAL SIGNS: Temperature 98.4, pulse 119, blood pressure 121/79, satting 95% on 2 liters nasal cannula. GENERAL: Elderly white man, ill-appearing, obese, no acute distress. CARDIOVASCULAR: Regular rate and rhythm. Systolic murmur, right upper sternal border. Right groin erythema and swelling. No drainage. [place] in place. ABDOMEN: Soft, nontender. LUNGS: Clear to auscultation bilaterally. EXTREMITIES: There is 1+ pitting edema bilaterally. NEURO AND PSYCH: Alert and oriented to person, place, and time. Normal affect. CARDIOVASCULAR MEDICATIONS: Reviewed. TELEMETRY DATA: Reviewed. Shows sinus tachycardia, heart rates in the 110s to 120s. LABORATORY DATA: Reviewed. ASSESSMENT AND PLAN 1. Aortic stenosis, status post transcatheter aortic valve replacement. 2. Right groin hematoma, status post evacuation by vascular surgery. 3. Hypotension. 4. Coronary artery disease. 5. Chronic systolic heart failure, status post implantable cardioverter-defibrillator placement. 6. Acute right lower extremity deep vein thrombosis. 7. Hypertension. 8. Hyperlipidemia. 9. Diabetes. 10. Chronic kidney disease. RECOMMENDATIONS: The patient was started on Lovenox bridge to Coumadin for DVT. Continue aspirin therapy in addition to warfarin. Plavix was stopped due to risk of bleeding in this elderly gentleman with triple therapy. Holding antihypertensive medicines given relative hypotension. Given sinus tachycardia and DVT, recommend CTA of the chest to look for pulmonary embolism, as presence of pulmonary embolism may require IVC filter placement. Ultrasound of the groin was reviewed showing resolving hematoma most likely, abscess less likely. Will continue to monitor. Continue antibiotics. Thank you for this consult. We will continue to follow. Job#: [id number]
--- NOTE | 2018-02-07 15:43 | Diagnostic Imaging Report ---
EXAM: Abdomen 2 Views INDICATION: ^PAIN ^[id number] ^[id number] COMPARISON: Renal ultrasound 06/07/2016 FINDINGS: Moderate amount of stool in the colon. No dilated loops of small bowel. No renal calculi. 1.5 cm round calcification overlying the right upper quadrant suggestive may be in the gallbladder. Reniform calcified mass measuring 14.2 cm in the right abdomen appears to represent a calcified kidney. Advanced degenerative changes in the lumbar spine and pelvis. Surgical clips overlying the right hip. IMPRESSION: 1. Reniform shape 14.2 cm calcified mass appears to represent a calcified kidney. Consider CT for further evaluation. 2. Suspected cholelithiasis. Signed by: Dr. Anabella Franks M.D. on 02/07/2018 3:39 PM
[2018-02-07] MEDS: WARFARIN SOD 5 MG TAB PO SCH (17:26)
[2018-02-07] MEDS: ATORVASTATIN 40 MG TAB PO SCH (21:30)
[2018-02-08] VITALS (8 sets, daily range): BP systolic 119–135; BP diastolic 60–76
[2018-02-08] MEDS: BISACODYL 5 MG TAB EC PO SCH (02:00)
[2018-02-08] MEDS: CEFEPIME HCL 1 GM VIAL IV SCH ×3 (05:49→21:59)
[2018-02-08 06:36] LABS: INR 2.21; PROTHROMBIN TIME 26.2 seconds (11.9-14.5)
[2018-02-08] MEDS: MUPIROCIN 2% OINT 22 GM TUBE TOP SCH ×2 (09:00→21:59)
[2018-02-08] MEDS: DOCUSATE SODIUM 100 MG CAP PO SCH ×2 (09:30→18:08)
[2018-02-08] MEDS: TAMSULOSIN HCL 0.4 MG CAP PO SCH (09:30)
[2018-02-08] MEDS: ASPIRIN 81 MG CHEW TAB PO SCH (09:30)
[2018-02-08] MEDS: FENOFIBRATE 145 MG TAB PO SCH (09:30)
[2018-02-08] MEDS: FINASTERIDE 5 MG TAB PO SCH (09:30)
[2018-02-08] MEDS: ENOXAPARIN SODIUM INJ 100 MG/ML SYR SC SCH ×2 (09:30→21:59)
[2018-02-08] MEDS: FERROUS SULFATE 325 MG TAB PO SCH ×2 (09:30→18:08)
[2018-02-08] MEDS: REPAGLINIDE 1 MG TAB PO SCH (09:30)
[2018-02-08] MEDS: ALLOPURINOL 100 MG TAB PO SCH (09:30)
[2018-02-08] MEDS: VANCOMYCIN 1GM/NS 250 ML 250 ML IV SCH (12:08)
[2018-02-08] MEDS: WARFARIN SOD 5 MG TAB PO SCH (18:08)
--- NOTE | 2018-02-08 18:48 | Progress Note ---
DATE: February 08, 2018 CARDIOLOGY PROGRESS NOTE SUBJECTIVE: Patient denies chest pain or shortness of breath. He is pending transfer to [facility]. OBJECTIVE VITAL SIGNS: Temperature 96.8 degrees, pulse 86, respiratory rate 20, blood pressure 135/64, and oxygen saturation is 93% on 2 liters nasal cannula. GENERAL: Obese gentleman, in no acute distress, awake and alert. LUNGS: Clear to auscultation bilaterally. No wheezes or crackles. CARDIOVASCULAR: Normal rate and regular rhythm. Systolic murmur, right upper sternal border. Right groin hematoma with dressing intact and slight sanguineous drainage. EXTREMITIES: A 1+ pitting edema bilaterally. ABDOMEN: Soft and nontender. CARDIAC MEDICATIONS 1. Lovenox 100 mg subcutaneous q.12 hour. 2. Fenofibrate 145 mg p.o. daily. 3. Aspirin 81 mg p.o. daily. 4. Atorvastatin 80 mg p.o. nightly. 5. Warfarin 7.5 mg p.o. daily. LABORATORY DATA: INR 2.21. TELEMETRY: Sinus tachycardia. ASSESSMENT 1. Aortic stenosis status post transcatheter aortic valve replacement. 2. Right groin hematoma status post evacuation by vascular surgery. 3. Coronary artery disease. 4. Chronic systolic heart failure status post automated implantable cardioverter-defibrillator. 5. Acute right lower extremity deep vein thrombosis. 6. Hypertension. 7. Hyperlipidemia. 8. Diabetes mellitus. 9. Chronic kidney disease. RECOMMENDATIONS: Patient's INR is now therapeutic after only 3 doses of warfarin. He will likely need less Coumadin, would recommend decreasing to 6 mg daily. Continue aspirin, would not have patient on triple therapy given risk of bleeding. Patient's blood pressure has improved. We will monitor closely and gradually resume heart failure therapy once blood pressure stabilizes. Antibiotics per infectious disease. Continue current cardiac medications. Thank you for this consult. We will continue to follow. Job#: [id number] THOR BORDEN
[2018-02-08] MEDS: ATORVASTATIN 40 MG TAB PO SCH (21:59)
[2018-02-08] MEDS: LORATADINE 10 MG TAB PO SCH (23:04)
[2018-02-09] VITALS (8 sets, daily range): BP systolic 100–168; BP diastolic 63–76
[2018-02-09 03:08] LABS: CLARITY,URINE SL CLOUDY (CLEAR); COLOR,URINE YELLOW (YELLOW); KETONES,URINE TRACE (NEGATIVE); LEUKOCYTE ESTERASE ,URINE NEGATIVE (NEGATIVE); NITRITE,URINE NEGATIVE (NEGATIVE); URINE UROBILINOGEN 0.2 mg/dL (0.2 - 1)
[2018-02-09 03:09] LABS: BILIRUBIN,URINE NEGATIVE (NEGATIVE); PROTEIN,URINE DIPSTICK 1+ (NEGATIVE)
[2018-02-09 03:21] LABS: BACTERIA,URINE MANY /HPF; EPITHELIAL CELLS,URINE FEW /LPF; RENAL EPITHELIAL CELLS,URINE RARE
[2018-02-09 03:22] LABS: MUCUS,URINE MANY (RARE); TRANSITIONAL EPI CELLS,URINE RARE
[2018-02-09] MEDS: CEFEPIME HCL 1 GM VIAL IV SCH ×3 (06:30→22:10)
[2018-02-09 07:34] LABS: INR 2.33; PROTHROMBIN TIME 27.3 seconds (11.9-14.5)
[2018-02-09 08:36] LABS: BASOPHILS % 0.4 % (0.0-1.0); EOSINOPHILS # (AUTO) 0.1 (0.0-0.4); EOSINOPHILS % 1.3 % (0.0-6.0); HEMATOCRIT 29.5 % (38.2-49.6); HEMOGLOBIN 9.4 g/dL (14.0-18.0); LYMPHOCYTES # (AUTO) 1.8 (1.0-3.2); LYMPHOCYTES % 33.8 % (18.0-39.1); MEAN CORPUSCULAR HEMOGLOBIN 30.7 pg (28-32); MEAN CORPUSCULAR HGB CONC 31.9 g/dL (31-35); MEAN CORPUSCULAR VOLUME 96.4 fL (81-99); MONOCYTES # (AUTO) 0.5 (0.2-0.8); MONOCYTES % 9.1 % (4.4-11.3); NEUTROPHILS % 54.8 % (38.7-80.0); PLATELET COUNT 189 x10e3/uL (140-360); RED BLOOD COUNT 3.06 x10e6/uL (4.3-5.7); RED CELL DISTRIBUTION WIDTH 17.2 % (11.7-14.4)
[2018-02-09] MEDS: TAMSULOSIN HCL 0.4 MG CAP PO SCH (10:00)
[2018-02-09] MEDS: REPAGLINIDE 1 MG TAB PO SCH (10:00)
[2018-02-09] MEDS: DOCUSATE SODIUM 100 MG CAP PO SCH ×2 (10:00→18:00)
[2018-02-09] MEDS: FINASTERIDE 5 MG TAB PO SCH (10:00)
[2018-02-09] MEDS: FENOFIBRATE 145 MG TAB PO SCH (10:00)
[2018-02-09] MEDS: ALLOPURINOL 100 MG TAB PO SCH (10:00)
[2018-02-09] MEDS: ENOXAPARIN SODIUM INJ 100 MG/ML SYR SC SCH (10:00)
[2018-02-09] MEDS: ASPIRIN 81 MG CHEW TAB PO SCH (10:00)
[2018-02-09] MEDS: FLUTICASONE PROPIONATE NASAL SPRAY NS SCH ×2 (10:00→17:00)
[2018-02-09] MEDS: FERROUS SULFATE 325 MG TAB PO SCH ×2 (10:00→18:00)
[2018-02-09] MEDS ORDERED: SODIUM CHLORIDE 0.9% 1000ML 1,000 ML IV SCH (17:45)
[2018-02-09] MEDS ORDERED: SODIUM CHLORIDE 0.9% 250ML 250 ML IV ONE (17:45)
[2018-02-09] MEDS: WARFARIN SOD 5 MG TAB PO SCH (18:00)
[2018-02-09] MEDS ORDERED: SODIUM CHLORIDE 0.9% 250ML 250 ML ONE (18:03)
[2018-02-09] MEDS ORDERED: SODIUM CHLORIDE 0.9% 1000ML 1,000 ML ONE (18:03)
--- NOTE | 2018-02-09 18:52 | Progress Note ---
DATE: February 09, 2018 CARDIOLOGY PROGRESS NOTE SUBJECTIVE: Patient denies chest pain or shortness of breath; however, he reports drainage from his right groin wound. OBJECTIVE VITAL SIGNS: Temperature 96.7 degrees, pulse 106, respiratory rate 18, blood pressure 123/75, oxygen saturation 98% on room air. GENERAL: Elderly man, in no acute distress, awake and alert. LUNGS: Clear to auscultation bilaterally. No wheezes or crackles. CARDIOVASCULAR: Normal rate, regular rhythm. Systolic murmur right upper sternal border. ABDOMEN: Right groin hematoma with drainage present. Soft, nontender. EXTREMITIES: 1+ pitting edema. CARDIAC MEDICATIONS 1. Enoxaparin 100 mg subcu q.12 hours. 2. Fenofibrate 145 mg p.o. daily. 3. Aspirin 81 mg p.o. daily. 4. Atorvastatin 80 mg p.o. q.h.s. 5. Warfarin 7.5 mg p.o. daily. LABS: WBC 5.41, hemoglobin 9.4, hematocrit 29.5, platelets 189. INR 2.33. UA; 1+ protein, trace ketones, trace blood, 6 to 10 rbc's, 6 to 10 wbc's, rare epithelial cells, many bacteria. TELEMETRY: Normal sinus rhythm with PACs. IMPRESSION 1. Severe aortic stenosis, status post transcatheter aortic valve replacement. 2. Right groin hematoma, status post evacuation by vascular surgery. 3. Abnormal urinalysis suggestive of urinary tract infection. 4. Acute right lower extremity deep vein thrombosis. 5. Coronary artery disease. 6. Chronic systolic heart failure, status post automated implantable cardioverter-defibrillator. 7. Hypertension. 8. Hyperlipidemia. 9. Diabetes mellitus. 10. Chronic kidney disease. RECOMMENDATIONS: Patient's INR is therapeutic. Stop Lovenox. Continue aspirin. Due to risk of bleeding, would not place patient on triple therapy. Patient's blood pressure is for the most part well controlled. Continue current medications. Antibiotics per infectious disease. We will need to resume heart failure therapy once blood pressure is stable. Thank you for this consult. We will continue to follow. Job#: [id number] THOR
[2018-02-09] MEDS: LORATADINE 10 MG TAB PO SCH (20:28)
[2018-02-09] MEDS: ATORVASTATIN 40 MG TAB PO SCH (20:28)
[2018-02-09] MEDS: MUPIROCIN 2% OINT 22 GM TUBE TOP SCH (20:28)
[2018-02-09] MEDS: METOPROLOL TARTRATE 25 MG TAB PO SCH (21:00)
[2018-02-09] MEDS ORDERED: LORATADINE 10 MG TAB PO SCH (21:00)
[2018-02-09] MEDS: BISACODYL 5 MG TAB EC PO SCH (22:34)
[2018-02-10] VITALS (7 sets, daily range): BP systolic 110–119; BP diastolic 56–87
[2018-02-10 06:39] LABS: ANION GAP 11.8 mmol/L (8-16); BLOOD UREA NITROGEN 16 mg/dL (7-26); BUN/CREATININE RATIO 16 (6-25); CALCIUM 8.8 mg/dL (8.4-10.2); CARBON DIOXIDE 27 mmol/L (22-29); CHLORIDE 105 mmol/L (98-107); CREATININE, SERUM 0.98 mg/dL (0.72-1.25); EST GLOMERULAR FILTRATION RATE > 60 ML/MIN (60-); GLUCOSE 105 mg/dL (74-118); POTASSIUM 3.8 mmol/L (3.5-5.1); SODIUM 140 mmol/L (136-145)
[2018-02-10] MEDS: CEFEPIME HCL 1 GM VIAL IV SCH ×3 (06:44→22:30)
[2018-02-10] MEDS: DOCUSATE SODIUM 100 MG CAP PO SCH ×2 (10:00→16:40)
[2018-02-10] MEDS: FENOFIBRATE 145 MG TAB PO SCH (10:00)
[2018-02-10] MEDS: FLUTICASONE PROPIONATE NASAL SPRAY NS SCH ×2 (10:00→16:40)
[2018-02-10] MEDS: FINASTERIDE 5 MG TAB PO SCH (10:00)
[2018-02-10] MEDS: METOPROLOL TARTRATE 25 MG TAB PO SCH ×2 (10:00→22:30)
[2018-02-10] MEDS: FERROUS SULFATE 325 MG TAB PO SCH ×2 (10:00→16:41)
[2018-02-10] MEDS: ASPIRIN 81 MG CHEW TAB PO SCH (10:00)
[2018-02-10] MEDS: VANCOMYCIN 1GM/NS 250 ML 250 ML IV SCH (10:00)
[2018-02-10] MEDS: ALLOPURINOL 100 MG TAB PO SCH (10:00)
[2018-02-10] MEDS: REPAGLINIDE 1 MG TAB PO SCH (10:00)
[2018-02-10] MEDS: WARFARIN SOD 5 MG TAB PO SCH (16:41)
--- NOTE | 2018-02-10 18:50 | Progress Note ---
DATE: February 10, 2018 CARDIOLOGY PROGRESS NOTE SUBJECTIVE: Patient denies chest pain or shortness of breath. Family is at bedside. OBJECTIVE VITAL SIGNS: Temperature 95.4 degrees, pulse 89, respiratory rate 18, blood pressure 112/66, oxygen saturation 97% on room air. GENERAL: Elderly man, in no acute distress, awake and alert. LUNGS: Clear to auscultation bilaterally. No wheezes or crackles. CARDIOVASCULAR: Normal rate, regular rhythm. Systolic murmur right upper sternal border. ABDOMEN: Soft, nontender. EXTREMITIES: 1+ pitting edema and right groin hematoma with surgical lonny noted. CARDIAC MEDICATIONS 1. Warfarin 7.5 mg p.o. daily. 2. Metoprolol tartrate 12.5 mg p.o. q.12 hours. 3. Fenofibrate 145 mg p.o. daily. 4. Aspirin 81 mg p.o. daily. 5. Atorvastatin 80 mg p.o. at bedtime. LABS: Sodium 140, potassium 3.8, chloride 105, CO2 of 27, BUN 16, creatinine 0.98. TELEMETRY: Normal sinus rhythm. IMPRESSION 1. Severe aortic stenosis, status post transcatheter aortic valve replacement. 2. Right groin hematoma, status post evacuation by vascular surgery. 3. Abnormal urinalysis suggestive of urinary tract infection. 4. Acute right lower extremity deep vein thrombosis. 5. Orthostatic hypotension. 6. Coronary artery disease. 7. Chronic systolic heart failure, status post automated implantable cardioverter-defibrillator. 8. Hypertension. 9. Hyperlipidemia. 10. Diabetes mellitus. 11. Chronic kidney disease. RECOMMENDATIONS: The patient's INR is therapeutic. Continue current cardiac medications. Patient is orthostatic. Continue IV fluids. Monitor volume status closely. Antibiotics per infectious disease. Follow wound culture results. We will need to resume heart failure therapy once patient is no longer orthostatic. Thank you for this consult. We will continue to follow. Job#: [id number] VAS
[2018-02-10] MEDS: ATORVASTATIN 40 MG TAB PO SCH (22:30)
[2018-02-10] MEDS: LORATADINE 10 MG TAB PO SCH (22:30)
[2018-02-10] MEDS: MUPIROCIN 2% OINT 22 GM TUBE TOP SCH (22:30)
[2018-02-11] VITALS (8 sets, daily range): BP systolic 114–150; BP diastolic 61–72
[2018-02-11 05:44] LABS: INR 3.74; PROTHROMBIN TIME 39.5 seconds (11.9-14.5)
[2018-02-11] MEDS: BISACODYL 5 MG TAB EC PO SCH (06:12)
[2018-02-11] MEDS: ASPIRIN 81 MG CHEW TAB PO SCH (09:20)
[2018-02-11] MEDS: VANCOMYCIN 1GM/NS 250 ML 250 ML IV SCH (09:20)
[2018-02-11] MEDS: DOCUSATE SODIUM 100 MG CAP PO SCH ×2 (09:25→17:10)
[2018-02-11] MEDS: METOPROLOL TARTRATE 25 MG TAB PO SCH ×2 (09:25→21:06)
[2018-02-11] MEDS: FENOFIBRATE 145 MG TAB PO SCH (09:25)
[2018-02-11] MEDS: FERROUS SULFATE 325 MG TAB PO SCH ×2 (09:25→17:10)
[2018-02-11] MEDS: REPAGLINIDE 1 MG TAB PO SCH (09:25)
[2018-02-11] MEDS: ALLOPURINOL 100 MG TAB PO SCH (09:25)
[2018-02-11] MEDS: FLUTICASONE PROPIONATE NASAL SPRAY NS SCH ×2 (09:25→17:10)
[2018-02-11] MEDS: FINASTERIDE 5 MG TAB PO SCH (09:25)
[2018-02-11] MEDS: CEFEPIME HCL 1 GM VIAL IV SCH ×2 (12:12→22:22)
[2018-02-11] MEDS: WARFARIN SOD 5 MG TAB PO SCH (16:49)
[2018-02-11] MEDS: ATORVASTATIN 40 MG TAB PO SCH (21:05)
[2018-02-11] MEDS: LORATADINE 10 MG TAB PO SCH (21:05)
[2018-02-11] MEDS: MUPIROCIN 2% OINT 22 GM TUBE TOP SCH (21:05)
--- NOTE | 2018-02-11 23:02 | Progress Note ---
DATE: February 11, 2018 CARDIOLOGY PROGRESS NOTE SUBJECTIVE: No major events overnight. No chest pain or shortness of breath. Sitting up in a chair, eating. OBJECTIVE VITAL SIGNS: Please see nursing chart. Remains somewhat orthostatic hypotension. GENERAL: Elderly white man, no acute distress. Well-developed, well-nourished. CARDIOVASCULAR: Regular rate and rhythm. A 2/6 systolic murmur in right upper sternal border radiating to the carotids. Palpable carotid pulses. Palpable radial pulses. Right groin with surgical incision with lonny in place, some redness around the wound with some serous drainage. No purulence. Mild tenderness. Palpable distal pulses. LUNGS: Clear to auscultation bilaterally. No respiratory distress. ABDOMEN: Obese, soft, nontender. No masses. NEURO AND PSYCH: Alert and oriented to person, place, and time. Normal affect. CARDIOVASCULAR MEDICATIONS: Reviewed. LABORATORY DATA: Reviewed. IMAGING DATA: Reviewed. TELEMETRY DATA: Reviewed. Shows normal sinus rhythm. ASSESSMENT 1. Severe aortic stenosis, status post transcatheter aortic valve replacement earlier this month. 2. Right groin hematoma, status post evacuation by vascular surgery. 3. Concern for a right groin wound infection. 4. Orthostatic hypotension. 5. Right lower extremity deep vein thrombosis. PLAN: Continue Coumadin for DVT as well as his TAVR. Stop Plavix and continue aspirin only along with the Coumadin given high risk of bleeding with triple therapy in this patient. Antibiotics per ID. Agree with need for rehab. Thank you for this consult. Will continue to follow. Job#: [id number]
[2018-02-12] VITALS (8 sets, daily range): BP systolic 106–147; BP diastolic 57–73
[2018-02-12] MEDS: BISACODYL 5 MG TAB EC PO SCH (05:49)
[2018-02-12] MEDS: DOCUSATE SODIUM 100 MG CAP PO SCH ×2 (09:19→16:11)
[2018-02-12] MEDS: ALLOPURINOL 100 MG TAB PO SCH (09:19)
[2018-02-12] MEDS: FENOFIBRATE 145 MG TAB PO SCH (09:19)
[2018-02-12] MEDS: ASPIRIN 81 MG CHEW TAB PO SCH (09:19)
[2018-02-12] MEDS: METOPROLOL TARTRATE 25 MG TAB PO SCH ×2 (09:19→21:50)
[2018-02-12] MEDS: REPAGLINIDE 1 MG TAB PO SCH (09:19)
[2018-02-12] MEDS: FINASTERIDE 5 MG TAB PO SCH (09:19)
[2018-02-12] MEDS: FERROUS SULFATE 325 MG TAB PO SCH ×2 (09:19→16:11)
[2018-02-12 09:37] LABS: PROTHROMBIN TIME 33.3 seconds (11.9-14.5)
[2018-02-12] MEDS: FLUTICASONE PROPIONATE NASAL SPRAY NS SCH ×2 (09:55→16:11)
[2018-02-12] MEDS ORDERED: CIPROFLOXACIN 400 MG/D5W 200ML 200 ML IV SCH (11:00)
[2018-02-12] MEDS: VANCOMYCIN 1GM/NS 250 ML 250 ML IV SCH (11:37)
[2018-02-12] MEDS: CIPROFLOXACIN 400 MG/D5W 200ML 200 ML IV SCH (13:19)
[2018-02-12] MEDS: CEFEPIME HCL 1 GM VIAL IV SCH (15:07)
--- NOTE | 2018-02-12 15:56 | Progress Note ---
DATE: February 12, 2018 SUBJECTIVE: No major events overnight. OBJECTIVE VITAL SIGNS: Temperature 96.3, pulse 72, respiratory rate 18, blood pressure 117/69, satting 100% on room air. GENERAL: Elderly white man in no acute distress. CARDIOVASCULAR: Regular rate and rhythm. A 2/6 systolic murmur, right upper sternal border radiating to the carotids. Palpable carotid pulses. Palpable radial pulses. Right groin hematoma with lonny in place. LUNGS: Clear to auscultation bilaterally. ABDOMEN: Obese, soft, nontender. EXTREMITIES: 1+ pitting edema. NEURO AND PSYCH: Alert and oriented to person, place, and time. Normal affect. CARDIAC MEDICATIONS: Reviewed. TELEMETRY DATA: Normal sinus rhythm. LABORATORY DATA: Reviewed. ASSESSMENT 1. Severe aortic stenosis, status post transcatheter aortic valve replacement. 2. Transcatheter aortic valve replacement complicated by right groin hematoma, status post evacuation by vascular surgery. 3. Suspected right groin wound infection. 4. Acute right lower extremity deep venous thrombosis. 5. Orthostatic hypotension. 6. Coronary artery disease. 7. Chronic systolic heart failure, status post automatic implantable cardioverter-defibrillator. 8. Hypertension. 9. Hyperlipidemia. 10. Diabetes. 11. Chronic kidney disease. PLAN 1. Continue current cardiovascular medications. 2. His INR is therapeutic at 3 today. Warfarin management per pharmacy. 3. Blood pressure is improved. 4. Antibiotics per primary team. 5. Continue aspirin. Thank you for this consult. We will continue to follow. Job#: [id number]
[2018-02-12] MEDS: WARFARIN SOD 5 MG TAB PO SCH (16:30)
[2018-02-12] MEDS ORDERED: WARFARIN SOD 5 MG TAB PO ONE (16:30)
[2018-02-12] MEDS: LORATADINE 10 MG TAB PO SCH (21:30)
[2018-02-12] MEDS ORDERED: HYDROCODONE/APAP 10MG-325MG TAB PO PRN (21:45)
[2018-02-12] MEDS: ATORVASTATIN 40 MG TAB PO SCH (21:49)
[2018-02-12] MEDS: MUPIROCIN 2% OINT 22 GM TUBE TOP SCH (21:50)
[2018-02-13] VITALS (9 sets, daily range): BP systolic 119–139; BP diastolic 50–86
[2018-02-13] MEDS: CIPROFLOXACIN 400 MG/D5W 200ML 200 ML IV SCH ×2 (02:36→14:05)
[2018-02-13] MEDS: CEFEPIME HCL 1 GM VIAL IV SCH ×2 (04:02→17:20)
[2018-02-13] MEDS: BISACODYL 5 MG TAB EC PO SCH (05:34)
[2018-02-13 05:57] LABS: INR 3.64; PROTHROMBIN TIME 38.7 seconds (11.9-14.5)
[2018-02-13] MEDS: DOCUSATE SODIUM 100 MG CAP PO SCH ×2 (09:00→17:00)
[2018-02-13] MEDS ORDERED: CIPROFLOXACIN 200 MG/D5W 100ML 100 ML IV SCH (09:00)
[2018-02-13] MEDS: FINASTERIDE 5 MG TAB PO SCH (10:00)
[2018-02-13] MEDS: ALLOPURINOL 100 MG TAB PO SCH (10:00)
[2018-02-13] MEDS: ASPIRIN 81 MG CHEW TAB PO SCH (10:00)
[2018-02-13] MEDS: REPAGLINIDE 1 MG TAB PO SCH (10:00)
[2018-02-13] MEDS: VANCOMYCIN 1GM/NS 250 ML 250 ML IV SCH (10:00)
[2018-02-13] MEDS: FENOFIBRATE 145 MG TAB PO SCH (10:00)
[2018-02-13] MEDS: FLUTICASONE PROPIONATE NASAL SPRAY NS SCH ×2 (10:00→17:20)
[2018-02-13] MEDS: FERROUS SULFATE 325 MG TAB PO SCH ×2 (10:00→17:20)
[2018-02-13] MEDS: METOPROLOL TARTRATE 25 MG TAB PO SCH ×2 (10:00→21:25)
--- NOTE | 2018-02-13 16:12 | Progress Note ---
DATE: February 13, 2018 CARDIOLOGY PROGRESS NOTE SUBJECTIVE: No major events overnight. OBJECTIVE VITAL SIGNS: Temperature 96.0, pulse 66, respiratory rate 20, blood pressure 133/86, satting 97% on nasal cannula. GENERAL: Elderly white man in no acute distress. CARDIOVASCULAR: Regular rate and rhythm. A 2/6 systolic murmur, right upper sternal border. Palpable carotid pulses. Palpable radial pulses. Right groin hematoma with lonny in place and dressing overlying. LUNGS: Clear to auscultation bilaterally. ABDOMEN: Obese, soft, nontender. NEURO AND PSYCH: Alert and oriented to person, place, and time. Normal affect. CARDIOVASCULAR MEDICATIONS: Reviewed. TELEMETRY DATA: Reviewed. Shows normal sinus rhythm. LABORATORY DATA: Reviewed. INR of 3.6. ASSESSMENT 1. Severe aortic stenosis, status post transcatheter aortic valve replacement. 2. Transcatheter aortic valve replacement procedure complicated by right groin hematoma, status post evacuation by vascular surgery. 3. Suspected groin wound infection. 4. Acute right lower extremity venous thrombosis. 5. Orthostatic hypotension. 6. Coronary artery disease. 7. Chronic systolic heart failure, status post automatic implantable cardioverter-defibrillator placement. 8. Hypertension. 9. Hyperlipidemia. 10. Diabetes. 11. Chronic kidney disease. PLAN: Continue current cardiovascular medications. INR is over 3. Would hold warfarin until it is in acceptable range between 2 and 3, likely due to interaction with Cipro. Thank you for this consult. We will continue to follow. Job#: [id number]
[2018-02-13 17:53] LABS: INR 3.84
[2018-02-13 17:54] LABS: PROTHROMBIN TIME 40.3 seconds (11.9-14.5)
[2018-02-13] MEDS: LORATADINE 10 MG TAB PO SCH (21:25)
[2018-02-13] MEDS: ATORVASTATIN 40 MG TAB PO SCH (21:25)
[2018-02-14] VITALS (8 sets, daily range): BP systolic 134–151; BP diastolic 67–79
[2018-02-14] MEDS: CIPROFLOXACIN 400 MG/D5W 200ML 200 ML IV SCH ×2 (02:48→13:46)
[2018-02-14] MEDS: CEFEPIME HCL 1 GM VIAL IV SCH ×2 (03:59→17:30)
[2018-02-14 06:01] LABS: INR 3.02; PROTHROMBIN TIME 33.4 seconds (11.9-14.5)
[2018-02-14] MEDS: BISACODYL 5 MG TAB EC PO SCH (07:22)
[2018-02-14] MEDS ORDERED: POTASSIUM CHLORIDE 20 MEQ TAB CR PO STA (07:55)
[2018-02-14] MEDS ORDERED: SODIUM CHLORIDE 0.9% 1000ML 500 ML IV ONE (08:00)
[2018-02-14] MEDS: DOCUSATE SODIUM 100 MG CAP PO SCH ×2 (09:00→17:00)
[2018-02-14] MEDS: ALLOPURINOL 100 MG TAB PO SCH (09:00)
[2018-02-14] MEDS: FERROUS SULFATE 325 MG TAB PO SCH ×2 (09:00→18:00)
[2018-02-14] MEDS: METOPROLOL TARTRATE 25 MG TAB PO SCH ×2 (09:00→21:35)
[2018-02-14] MEDS: VANCOMYCIN 1GM/NS 250 ML 250 ML IV SCH (09:00)
[2018-02-14] MEDS: FENOFIBRATE 145 MG TAB PO SCH (09:00)
[2018-02-14] MEDS: REPAGLINIDE 1 MG TAB PO SCH (09:00)
[2018-02-14] MEDS: ASPIRIN 81 MG CHEW TAB PO SCH (09:00)
[2018-02-14] MEDS: FINASTERIDE 5 MG TAB PO SCH (09:00)
[2018-02-14] MEDS: FLUTICASONE PROPIONATE NASAL SPRAY NS SCH ×2 (09:00→18:00)
[2018-02-14] MEDS ORDERED: POTASSIUM CHLORIDE 20 MEQ TAB CR PO SCH (10:00)
--- NOTE | 2018-02-14 20:57 | Progress Note ---
DATE: February 14, 2018 CARDIOLOGY PROGRESS NOTE SUBJECTIVE: No major events overnight. OBJECTIVE VITAL SIGNS: Please see medical records. GENERAL: Elderly white man, no acute distress. CARDIOVASCULAR: Regular rate and rhythm. A 2/6 systolic murmur at right upper sternal border. Palpable carotid pulses. Palpable radial pulses. Right groin swelling with overlying incision and lonny in place. Mildly tender to palpation. No significant purulence or discharge. Mild redness. LUNGS: Clear to auscultation bilaterally. No respiratory distress. ABDOMEN: Obese, soft, nontender. NEURO AND PSYCH: Alert and oriented to person, place, and time. Normal affect. CARDIAC MEDICATIONS: Reviewed. LABORATORY DATA: Reviewed. TELEMETRY DATA: Reviewed. Shows normal sinus rhythm. ASSESSMENT 1. Severe aortic stenosis, status post transcatheter aortic valve replacement. 2. Transcatheter aortic valve replacement complicated by right groin hematoma, status post evacuation by vascular surgery. 3. Suspected right groin wound infection. 4. Chronic systolic heart failure. 5. Orthostatic hypotension. 6. Acute right lower extremity deep vein thrombosis. PLAN: Continue anticoagulation for right lower extremity DVT. Continue aspirin. Plavix was stopped as triple therapy is high risk for bleeding in this elderly gentleman. Overall, doing better, but requires more rehab. Followup for right groin wound with vascular surgery at [facility]. Continue antibiotics per primary team. Ultrasound was performed earlier this admission, showed no pseudoaneurysm or evidence of abscess. Thank you for this consult. Will continue to follow. Job#: [id number] [employer]
[2018-02-14] MEDS: ATORVASTATIN 40 MG TAB PO SCH (21:31)
[2018-02-14] MEDS: LORATADINE 10 MG TAB PO SCH (21:31)
[2018-02-15] VITALS (8 sets, daily range): BP systolic 112–160; BP diastolic 59–72
[2018-02-15] MEDS: CIPROFLOXACIN 400 MG/D5W 200ML 200 ML IV SCH ×2 (02:08→14:14)
[2018-02-15] MEDS: CEFEPIME HCL 1 GM VIAL IV SCH ×2 (04:33→16:25)
[2018-02-15 06:08] LABS: INR 2.43; PROTHROMBIN TIME 28.2 seconds (11.9-14.5)
[2018-02-15] MEDS: BISACODYL 5 MG TAB EC PO SCH (07:40)
[2018-02-15] MEDS: ALLOPURINOL 100 MG TAB PO SCH (09:03)
[2018-02-15] MEDS: METOPROLOL TARTRATE 25 MG TAB PO SCH (09:03)
[2018-02-15] MEDS: FERROUS SULFATE 325 MG TAB PO SCH ×2 (09:03→16:25)
[2018-02-15] MEDS: FENOFIBRATE 145 MG TAB PO SCH (09:03)
[2018-02-15] MEDS: FINASTERIDE 5 MG TAB PO SCH (09:03)
[2018-02-15] MEDS: FLUTICASONE PROPIONATE NASAL SPRAY NS SCH ×2 (09:03→16:25)
[2018-02-15] MEDS: DOCUSATE SODIUM 100 MG CAP PO SCH ×2 (09:03→16:25)
[2018-02-15] MEDS: REPAGLINIDE 1 MG TAB PO SCH (09:03)
[2018-02-15] MEDS: ASPIRIN 81 MG CHEW TAB PO SCH (09:03)
--- NOTE | 2018-02-15 10:52 | Diagnostic Imaging Report ---
PROCEDURE:US GUIDANCE FOR VASCULAR ACCESS COMPARISON:None. INDICATIONS:Not provided. FINDINGS:Ultrasound evaluation of potential peripheral access sites was performed. After successfully identifying a patent vessel, US guidance was used to puncture the peripheral arm vein. A permanent recording was created for the patient record. CONCLUSION: Successful peripheral IV access by Ultrasound guidance. Dictated by: LUNA MENDOZA M.D. on 02/15/2018 at 11:00 Electronically approved by: LUNA MENDOZA M.D. on 02/15/2018 at 11:00
--- NOTE | 2018-02-15 13:23 | Progress Note ---
DATE: February 15, 2018 CARDIOLOGY PROGRESS NOTE SUBJECTIVE: No major events overnight. Sitting up in a chair today. Plan is to go to rehab today. OBJECTIVE VITAL SIGNS: Temperature 96.9, pulse 72, respiratory rate 18, blood pressure 138/67, satting 100% on room air. GENERAL: Elderly white man in no acute distress. CARDIOVASCULAR: Regular rate and rhythm. No murmurs, rubs or gallops. A 2/6 systolic murmur right upper sternal border. Palpable carotid pulses. Palpable radial pulses. Right groin swelling overlying incision, lonny in place. Mildly tender to palpation. No purulence or discharge. Mild redness. LUNGS: Clear to auscultation bilaterally. No respiratory distress. ABDOMEN: Obese, soft, nontender. No masses. NEURO AND PSYCH: Alert and oriented to person, place, and time. Normal affect. CARDIOVASCULAR MEDICATIONS: Reviewed. TELEMETRY DATA: Reviewed, shows normal sinus rhythm. LABORATORY DATA: Reviewed. ASSESSMENT AND PLAN 1. Severe aortic stenosis, status post transcatheter aortic valve replacement. 2. Transcatheter aortic valve replacement complicated by right groin hematoma, status post evacuation by vascular surgery. 3. Suspected right groin wound infection. Culture is growing pseudomonas. 4. Chronic systolic heart failure. 5. Orthostatic hypotension. 6. Acute right lower extremity deep venous thrombosis. PLAN: Continue anticoagulation for right lower extremity DVT with warfarin. Continue aspirin for his history of nonobstructive CAD as well as his transcatheter aortic valve replacement. Overall, he is doing better. However, he requires rehab. Right groin wound to be followed by vascular surgery at [facility]. [place] are in place. Antibiotics per primary team. Ultrasound performed earlier this admission shows no vascular complications or evidence of active bleeding or obvious abscess, just resolving hematoma likely. Thank you for this consult. Will continue to follow. Job#: [id number]
[2018-02-15] MEDS ORDERED: WARFARIN SOD 2 MG TAB PO SCH (17:00)
--- NOTE | 2018-04-14 13:58 | Discharge Summary ---
DISCHARGE DIAGNOSES 1. Orthostatic hypotension. 2. Cellulitis of his incision on the abdominal wall from his recent transcatheter aortic valve replacement. HISTORY OF PRESENT ILLNESS AND HOSPITAL COURSE: See hospital chart for full details. Patient is a gentleman who presented with dizziness where he was found have orthostatic hypotension who recently had a TAVR done in an outside facility where the incision around the abdominal wall appeared to have a hematoma as well as some evidence of cellulitis, so he was placed on IV antibiotics by Dr. Murry for that. His orthostatic changes resolved with discontinuing some of his blood pressure medicines. He is also noticed to have a DVT in the right leg on ultrasound and so he was started on Lovenox and converted over to Coumadin. Cellulitis part did improve. His Coumadin did become therapeutic and so at the time of discharge he was sent to a intermediate facility for continued IV antibiotics and therapy. Please see hospital chart for full details. SERENA PIMENTEL MD Job#: [id number] NATH[place]
== END 2018-02-15 19:49 | DRG 863 ==
LOC: ER 15:30 → ERHOLD 18:16 → MED/SURG 20:47 → OBSVTOIN 02-04 12:33
PROVIDERS: ADMIT Internal Medicine; ATTEND Internal Medicine
DX: T81.49XA Infection following a procedure, other surgical site, initial encounter (principal); L03.314 Cellulitis of groin; I13.0 Hypertensive heart and chronic kidney disease with heart failure and stage 1 through stage 4 chronic kidney disease, or unspecified chronic kidney disease; I50.22 Chronic systolic (congestive) heart failure; N39.0 Urinary tract infection, site not specified; I82.441 Acute embolism and thrombosis of right tibial vein; M96.841 Postprocedural hematoma of a musculoskeletal structure following other procedure; I95.1 Orthostatic hypotension; E11.22 Type 2 diabetes mellitus with diabetic chronic kidney disease; N18.3 Chronic kidney disease, stage 3 (moderate); M10.9 Gout, unspecified; D64.9 Anemia, unspecified; Z95.2 Presence of prosthetic heart valve; Z95.810 Presence of automatic (implantable) cardiac defibrillator; E78.5 Hyperlipidemia, unspecified; I35.0 Nonrheumatic aortic (valve) stenosis; Z79.01 Long term (current) use of anticoagulants; D63.1 Anemia in chronic kidney disease; E66.9 Obesity, unspecified; Z68.31 Body mass index [BMI] 31.0-31.9, adult; Z82.49 Family history of ischemic heart disease and other diseases of the circulatory system; B96.5 Pseudomonas (aeruginosa) (mallei) (pseudomallei) as the cause of diseases classified elsewhere; Z79.84 Long term (current) use of oral hypoglycemic drugs
CPT/HCPCS: 36415; 71045; 74018; 76882; 76937; 80048; 80053; 80202; 81001; 82550; 82553; 82948; 83735; 83880; 84484; 85025; 85610; 85730; 87040; 87071; 87186; 87205; 93005; 93306; 93971; 94660; 96361; 97139; 99284; G0378; J0692; J0696; J1650; J2405; J2920; J3370; J7030; J7050

== ENCOUNTER 2018-06-23 11:36 | Observation (INO) | payer MEDICARE ==
[~2018-06-23] VITALS: Ht 182.9 cm; Wt 96.3 kg
[~2018-06-23 11:36] MED LIST changes: +AMLODIPINE BESYL5 MG PO; +CLOPIDOGREL75 MG PO; +DOCUSATE SODIU100 MG PO; +PRANDIN1 MG PO; +TORSEMIDE10 MG PO
--- OUTSIDE RECORDS SUMMARY | 2018-06-23 11:38 | XMS REPORT | Continuity of Care Document ---
Author Author [facility] Address Unknown Phone Unavailable Problems Problem Status Onset Date Classification Date Reported Comments Source AMS Active 03/30/2018 [facility] S/P TAVR; INCISION CHECK Active 01/30/2018 [facility] HOSPITAL D/C, S/P TAVR 01/16/18 Active 01/25/2018 [facility] D/C FOLLOW UP Active 01/23/2018 [facility] SOB/CP Active 01/07/2018 [facility] AORTIC VALVE STENOSIS CRITICAL Active 01/07/2018 [facility] Medications Medication Details Route Status Patient Instructions Ordering Provider Order Date Source Allergies, Adverse Reactions, Alerts Substance Category Reaction Severity Reaction type Status Date Reported Comments Source iodine topical Assertion Drug allergy Active [facility] [place] Immunizations Immunization Date Given Site Status Last Updated Comments Source tuberculin purified protein derivative 02/05/2006 Left Arm completed [facility] [place] pneumococcal 23-valent vaccine 02/05/2006 Right arm completed [facility] [place] Results Order Name Results Value Reference Range Date Interpretation Comments Source Spine cervical 2 or 3 view DX Spine cervical 2 or 3 view DX EXAM: XR CERVICAL SPINE 4 VIEWS DATE: 04/21/2018 at 2154 hours. INDICATION: -Neck stiffness COMPARISON: None. TECHNIQUE: AP, open-mouth, swimmer's lateral and lateral views of the cervical spine FINDINGS: Generalized osteopenia is present. Straightening of cervical spine is noted. Vertebral body heights are maintained. There is mild disc height loss at C3-C4. Uncovertebral hypertrophy is noted at C4-C5 C5-C6 and C6-C7 bilaterally. The paravertebral and paraspinal soft tissues are unremarkable. The visualized lung apices are clear. IMPRESSION: 1. Straightening of the cervical spine could be positional versus muscle spasm. 2. Mild C3-C4 spondylosis. 3. Uncovertebral hypertrophy at C4-C7. 04/21/2018 - - This report was dictated by a Business Continuity Manager/Fellow/Physician Director Of Partnerships. I have personally reviewed the images as well as the interpretation and agree with the findings. Read by: David Gaona MD Resident/Fellow/Physician Director Of Partnerships: David Gaona MD Dictated Date/time: 04/22/18 08:57 Electronically Signed by: Shannon Hankins MD 04/23/18 01:16 FINAL REPORT [facility] Shoulder series DX Shoulder series DX EXAM: XR LEFT SHOULDER 3 VIEWS DATE: 04/21/2018 at 1741 hours INDICATION: - Left shoulder pain COMPARISON: Left shoulder radiograph 03/09/2014. TECHNIQUE: AP views in internal and external rotation, and an axillary view of the shoulder FINDINGS: No acute fracture or malalignment is identified. Moderate osteoarthrosis of the glenohumeral and acromioclavicular joints is redemonstrated. There is no subacromial narrowing. Curvilinear calcification along the greater tuberosity likely representing calcific tendinopathy of the supraspinatus tendon. Cardiac pacemaker and aortic root stent are partially visualized. IMPRESSION: 1. Moderate glenohumeral and acromioclavicular osteoarthrosis. 2. Supraspinatus calcific tendinopathy. 04/21/2018 - - This report was dictated by a Business Continuity Manager/Fellow/Physician Director Of Partnerships. I have personally reviewed the images as well as the interpretation and agree with the findings. Read by: Daivd Gaona MD Resident/Fellow/Physician Director Of Partnerships: David Gaona MD Dictated Date/time: 04/22/18 08:50 Electronically Signed by: Shannon Hankins MD 04/23/18 01:16 FINAL REPORT [facility] Chest 1view DX Chest 1view DX EXAM: XR CHEST 1 VIEW DATE: 04/20/2018 19:04 CONSUMER RELATIONS COMPLAINT CLERK INDICATION: - eval COMPARISON: 04/10/2018 TECHNIQUE: AP chest FINDINGS: Removal of the feeding tube. Stable left ICD. Stable cardiac silhouette status post TAVR. Thoracic aorta is tortuous. Bilateral infrahilar subsegmental atelectasis. No pleural effusion or pneumothorax. Unchanged skeletal structures. IMPRESSION: Removal of the feeding tube. Otherwise, no significant change. 04/20/2018 - - Read by: Donn Pastor MD Dictated Date/time: 04/20/18 19:37 Electronically Signed by: Donn Pastor 04/20/18 19:41 FINAL REPORT [facility] Knee 3 views DX Knee 3 views DX EXAM: XR RIGHT KNEE 3 VIEWS DATE: 04/19/2018 10:11 CONSUMER RELATIONS COMPLAINT CLERK INDICATION: - Swelling/pain COMPARISON: None. TECHNIQUE: 3 views of the knee FINDINGS: No acute fracture or malalignment is identified. And old, healed fracture of the right proximal tibia is present, with slight residual downsloping of the medial tibial plateau. There is no perihardware lucency or evidence of failure. Tricompartmental osteophytes are present. Bone infarct is present at the distal femur. 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 A moderate knee joint effusion is present. Diffuse vascular calcifications are present posteriorly. IMPRESSION: Healed tibial fracture without acute bony abnormality. Moderate knee joint effusion is nonspecific. If there is clinical concern for knee infection consider joint aspiration. 04/19/2018 - - Read by: Lilly Acevedo MD Dictated Date/time: 04/19/18 13:46 Electronically Signed by: Lilly Acevedo MD 04/19/18 13:50 FINAL REPORT [facility] PET CT Tumor [id number] PET CT Tumor ddzhlol-ozsqb-nfbyqedu EXAM: NM PET CT Skull Base to Mid Thigh DATE: 04/12/2018 13:03 CONSUMER RELATIONS COMPLAINT CLERK INDICATION: Unknown source of infection - fever of unknown origin. (PET-CT scan for infection per Dr Almodovar) COMPARISON: CT abdomen and pelvis 03/31/2018 TECHNIQUE: After intravenous administration of 15.09 mCi of F-18 FDG, approximately one hour delayed PET/non-contrast CT scan from the base of the skull to the upper thighs level was obtained. FINDINGS: PET: Lymph Nodes: No FDG avid lymphadenopathy identified. Other Organs: There is an area of focal increased tracer uptake in the soft tissues of the right inguinal region with maximum SUV of 4.5. CT of this area demonstrates surgical clips and soft tissue thickening with no evident fluid collection or hematoma. Bones: No abnormal increased focal tracer uptake in the bones. The remainder of tracer distribution and metabolism throughout the body is physiologic. CT: The non-contrast CT part of the study demonstrates mild mucosal thickening of the left maxillary sinus without FDG avidity. There are post surgical changes from aortic valve replacement in the heart. Cardiac pacemaker leads are present in the right ventricle. There is significant atherosclerotic calcification present in the aortic arch and throughout the aorta and its major branches. There is minimal subsegmental atelectasis at the right lung base, otherwise lungs are clear. Numerous cysts are again noted in both kidneys with a hyperdense collection with rim calcification in the right perinephric region suggestive of chronic hematoma. Small hiatal hernia present. As described above, surgical clips and soft tissue thickening is noted in the right inguinal region without definite fluid collection or hematoma. The remaining major visualized organs show no evidence of additional metastatic sites including the bones. IMPRESSION: 1. No increased focal tracer uptake to suggest source of infection. 2. Mildly increased tracer uptake in the right inguinal region with associated surgical clips and soft tissue thickening, likely postsurgical in nature. 04/12/2018 - - This report was dictated by a Business Continuity Manager/Fellow/Physician Director Of Partnerships. I have personally reviewed the images as well as the interpretation and agree with the findings. Read by: Sukumar Koenig MD Resident/Fellow/Physician Director Of Partnerships: Sukumar Koenig MD Dictated Date/time: 04/17/18 10:24 Electronically Signed by: Eve Acosta MD 04/17/18 17:06 FINAL REPORT [facility] Chest 1view DX Chest 1view DX EXAM: XR CHEST 1 VIEW DATE: 04/10/2018 9:07 CONSUMER RELATIONS COMPLAINT CLERK INDICATION: - fever COMPARISON: 03/31/2018 TECHNIQUE: AP chest. FINDINGS: Lines, tubes and hardware: Left chest wall implantable cardiac defibrillator, TAVR are unchanged. The feeding tube projects below the diaphragm. Additional support/monitoring devices overlie the patient. Lungs and pleura: The lungs are clear. No pleural effusion or pneumothorax. Heart and mediastinum: The heart size is normal for technique. The thoracic aorta is tortuous. Pulmonary vascularity is normal. Bones: No acute abnormality. IMPRESSION: 1. No acute abnormality. 04/10/2018 - - This report was dictated by a Business Continuity Manager/Fellow/Physician Director Of Partnerships. I have personally reviewed the images as well as the interpretation and agree with the findings. Read by: Wing Fernandez MD Resident/Fellow/Physician Director Of Partnerships: Wing Fernandez MD Dictated Date/time: 04/10/18 09:34 Electronically Signed by: Jacque Mendoza MD 04/11/18 08:40 FINAL REPORT [facility] Spine lumbar puncture w fluoro DX Spine lumbar puncture w fluoro DX EXAM: LUMBAR PUNCTURE, FLUOROSCOPIC GUIDANCE DATE: 04/08/2018 at 10:00 AM INDICATION: 82-year-old male patient coursing with altered mental status and urinary sepsis. Rule out central nervous system infection. COMPARISON: None available TECHNIQUE AND FINDINGS: Informed consent was obtained from the patient's spouse over the phone, and time out procedure was performed. The lower back was prepped and draped in sterile fashion with the patient in left lateral decubitus position. Under fluoroscopic guidance a 22 gauge 3.5 inches long spinal Quincke needle was advanced into the thecal sac at the L1-L2 interspace. The opening pressure was 17 cm of H2O. 12 mL of clear spinal fluid was withdrawn without complication. FLUOROSCOPY TIME: 0.1 minutes Skin dose: 89 mGy George Romero MD was present for the procedure. IMPRESSION: Successful fluoroscopically guided lumbar puncture. 04/08/2018 - - This report was dictated by a Business Continuity Manager/Fellow/Physician Director Of Partnerships. I have personally reviewed the images as well as the interpretation and agree with the findings. Read by: Jack Alejandra Resident/Fellow/Physician Director Of Partnerships: Jack Alejandra Dictated Date/time: 04/08/18 11:33 Electronically Signed by: George Romero MD 04/08/18 13:17 FINAL REPORT [facility] Abdomen AP DX Abdomen AP DX EXAM: XR ABDOMEN 1 VIEW DATE: 04/05/2018 at 0046 hours INDICATION: Tube placement - Tube placement ADDITIONAL INFORMATION: None. COMPARISON: * Radiograph abdomen of 04/02/2018 at 1035 hours. * CT of 01/10/2018 at 1248 hours TECHNIQUE: Limited AP view of the abdomen for tube placement assessment. Number of images: 1 FINDINGS: Transesophageal feeding tube (tip): Gastric antrum. Transesophageal suction tube (sidehole): None present. Other tubes, lines and hardware: * Automatic implantable cardiac defibrillator lead in the right ventricle. * TAVR. * Electrocardiogram leads overlie the patient. Other:Redemonstration of peripherally calcified right renal cysts No other changes. IMPRESSION: 1. Tube positions as above. 04/05/2018 - - Read by: Walker De La Garza MD Dictated Date/time: 04/05/18 07:36 Electronically Signed by: Walker De La Garza MD 04/05/18 07:38 FINAL REPORT [facility] Abdomen AP DX Abdomen AP DX EXAM: XR ABDOMEN 1 VIEW DATE: 04/02/2018 10:26 CONSUMER RELATIONS COMPLAINT CLERK INDICATION: - DHT placement TECHNIQUE: AP view of the abdomen. FINDINGS: The tip of a feeding tube is in the distal stomach along the greater curvature. There is no change in the apparent of a large rim-like calcification in the right abdomen and 2 smaller rim-like calcifications more medially located. The bowel gas pattern shows no dilated large or small bowel loops. IMPRESSION: 1. The feeding tube is in the distal stomach along the greater curvature; recommend advancing it. 2. Stable right-sided abdominal calcifications possibly within renal cysts or within a hematoma. 04/02/2018 - - Read by: Godwin Smith MD Dictated Date/time: 04/02/18 11:17 Electronically Signed by: Godwin Smith MD 04/02/18 11:26 FINAL REPORT [facility] Chest 1view DX Chest 1view DX EXAM: XR CHEST 1 VIEW DATE: 03/31/2018 1502 hours INDICATION: Acute metabolic encephalopathy COMPARISON: Chest radiograph dated 03/31/2018 0431 hours. TECHNIQUE: AP chest. FINDINGS: Lines, tubes and hardware: Implanted cardiac defibrillator and TAVR stent are unchanged in location compared to the prior study. Overlying electrocardiogram leads are once again seen. Lungs and pleura: Bibasilar subsegmental atelectasis is noted, otherwise the lungs are clear. No pleural effusion or pneumothorax is present. Heart and mediastinum: The heart size is normal for technique. The mediastinal contours are normal. The pulmonary vascularity is unremarkable. Bones: No acute abnormality. Stable degenerative changes of the thoracic spine are seen. IMPRESSION: 1. No acute cardiac pulmonary abnormality. 2. Mild bibasilar subsegmental atelectasis 03/31/2018 - - This report was dictated by a Business Continuity Manager/Fellow/Physician Director Of Partnerships. I have personally reviewed the images as well as the interpretation and agree with the findings. Read by: Scottie Pollock Resident/Fellow/Physician Director Of Partnerships: Scottie Pollock Dictated Date/time: 04/01/18 09:04 Electronically Signed by: Miranda Edward MD 04/01/18 16:17 FINAL REPORT [facility] Knee 3 views DX Knee 3 views DX EXAM: XR LEFT KNEE 3 VIEWS DATE: 03/31/2018 14:36 CONSUMER RELATIONS COMPLAINT CLERK INDICATION: - effusion COMPARISON: None TECHNIQUE: 3 views of the knee FINDINGS: No acute fracture or malalignment is identified. Moderate loss or joint effusion is present. Extensive diffuse osteopenia is present. /Stat incidental note of vascular calcification. No soft tissue abnormality is identified. IMPRESSION: Moderate size joint effusion with diffuse osteopenia. Tricompartment degenerative changes. 03/31/2018 - - Read by: Shannon Hankins MD Dictated Date/time: 03/31/18 18:22 Electronically Signed by: Shannon Hankins MD 03/31/18 18:23 FINAL REPORT [facility] Abdomen/Pelvis wo IV contrast CT Abdomen/Pelvis wo IV contrast CT EXAM: CT ABDOMEN AND PELVIS WITHOUT CONTRAST DATE: 03/31/2018 13:39 CONSUMER RELATIONS COMPLAINT CLERK INDICATION: - concern for intraabdominal source of infection ADDITIONAL INFORMATION: None. COMPARISON: CT abdomen 01/18/2018. TECHNIQUE: Volumetric CT acquisition of the abdomen and pelvis without intravenous contrast. Axial, coronal and sagittal reconstructions. IV contrast: None. Enteric contrast: None. DLP: 1146 mGy-cm FINDINGS: Lines, tubes and hardware: Cardiac pacemaker leads in the right ventricle. Prosthetic aortic valve. Lower thorax: Bilateral small pleural effusions noted with adjacent atelectasis is similar to prior CT. Liver: Normal. Biliary tree: No intra- or extrahepatic biliary ductal dilation. Gallbladder: Normal. No CT evidence of gallstones. Pancreas: Normal. Spleen: Normal. Adrenals: Normal. Kidneys and ureters: Numerous cysts are noted in both kidneys. Hyperdense foci noted within a left upper pole (3/31) and right interpolar cyst (3/42), suggestive of hemorrhagic/proteinaceous content. Hyperdense collection with rim calcification noted in the right perinephric region suggestive of chronic hematoma. Bladder: Normal. Reproductive organs: Mild prostatomegaly noted Gastrointestinal tract: Stomach: Moderate hiatus hernia. Small bowel: Normal. Colon: Normal. Appendix: Not visualized. No inflammatory changes in the right lower quadrant. Peritoneum, mesentery and retroperitoneum: No free air, ascites or loculated fluid. Lymph nodes: Normal. Vasculature: Moderate atherosclerotic calcifications of the aorta and iliac arteries. Bones: No acute abnormality. Multilevel degenerative changes noted in the spine. Soft tissues: Surgical clips and soft tissue thickening noted in the right inguinal region. There is no fluid collection or hematoma. Small fat-containing right femoral hernia. IMPRESSION: 1. No fluid collection or source of infection in the abdomen/pelvis. 2. Stable bilateral renal cysts and chronic calcified right perinephric hematoma. 3. Stable small bilateral pleural effusions with adjacent atelectasis. 03/31/2018 - - This report was dictated by a Business Continuity Manager/Fellow/Physician Director Of Partnerships. I have personally reviewed the images as well as the interpretation and agree with the findings. Read by: Brandon Wan MD Resident/Fellow/Physician Director Of Partnerships: Brandon Wan MD Dictated Date/time: 04/01/18 08:57 Electronically Signed by: Walker De La Garza MD 04/01/18 09:43 FINAL REPORT [facility] Brain wo contrast CT Brain wo contrast CT EXAM: CT BRAIN WITHOUT CONTRAST DATE: 03/31/2018 at 0530 hours. INDICATION: Altered mental status ADDITIONAL INFORMATION: 82-year-old male with multiple comorbidities, status post TAVR on 01/16/2018. COMPARISON: None. TECHNIQUE: Axial CT images of the brain were obtained. Sagittal and coronal reformats. IV contrast: None. DLP: 1448.2 mGy-cm FINDINGS: There is no edema, hemorrhage, mass lesion or other acute intracranial abnormality. There is diffuse parenchymal volume loss, with areas of periventricular and subcortical white matter hyperintensities suggestive of chronic microvascular disease. Atheromatous calcifications are noted of the bilateral carotid siphons and V3/V4 segments of the bilateral vertebral arteries. There is partial opacification of right mastoid air cells. Mucosal thickening fluid is seen in the bilateral maxillary sinuses, frontal sinuses, sphenoid sinuses and ethmoid air cells. No abnormality of the orbits or globes. IMPRESSION: 1. No acute intracranial abnormality. 2. Chronic findings, including moderate parenchymal volume loss and evidence of chronic microvascular disease. 03/31/2018 - - This report was dictated by a Business Continuity Manager/Fellow/Physician Director Of Partnerships. I have personally reviewed the images as well as the interpretation and agree with the findings. Read by: Clifford Thakur MD Resident/Fellow/Physician Director Of Partnerships: Clifford Thakur MD Dictated Date/time: 03/31/18 08:28 Electronically Signed by: Aria Salmeron MD 03/31/18 11:48 FINAL REPORT [facility] Chest 1view DX Chest 1view DX EXAM: XR CHEST 1 VIEW DATE: 03/31/2018 3:38 AM CONSUMER RELATIONS COMPLAINT CLERK INDICATION: - ams COMPARISON: 01/18/2018 TECHNIQUE: AP chest. IMPRESSION: 1. Left subclavian single lead automatic implantable cardiac defibrillator remains in position. 2. Stable enlarged cardiomediastinal silhouette and postsurgical changes following TAVR. The aorta is elongated. 3. Lung volumes are low. Bibasilar subsegmental atelectasis. Mild pulmonary edema, improved from prior chest radiograph 4. No definitive pleural effusions. 5. No pneumothorax. 03/31/2018 - - Read by: Jacque Mendoza MD Dictated Date/time: 03/31/18 09:25 Electronically Signed by: Jacque Mendoza MD 03/31/18 09:27 FINAL REPORT [facility] Abdomen/Pelvis wo IV contrast CT Abdomen/Pelvis wo [...] La Garza MD 01/18/18 17:25 FINAL REPORT [facility] Chest 1view DX Chest 1view DX EXAM: [...] Jacque Mendoza MD 01/18/18 09:45 FINAL REPORT [facility] Chest 1view DX Chest 1view DX EXAM: XR CHEST 1 VIEW DATE: 01/16/2018 6:53 PM CDT INDICATION: Arrhythmias - s/p MALU COMPARISON: 02/12/2018 TECHNIQUE: AP chest FINDINGS: Lines [...] Darryn Kenyon MD 01/16/18 20:24 FINAL REPORT [facility] Chest 1view DX Chest 1view DX EXAM: XR CHEST 1 VIEW DATE: 01/16/2018 3:28 PM CDT INDICATION: Heart failure - S/P malu COMPARISON: January 07, 2018 TECHNIQUE: AP chest [...] Darryn Kenyon MD 01/16/18 17:58 FINAL REPORT [facility] Abdomen AP DX Abdomen AP DX EXAM: [...] Claribel Posadas DO 01/15/18 19:58 FINAL REPORT [facility] Chest/Abd/Pelvis TAVR CTA Chest/Abd/Pelvis TAVR CTA EXAM: [...] De Dios MD 01/10/18 17:57 FINAL REPORT [facility] Heart/coronary art TAVR CTA Heart/coronary art TAVR CTA EXAM: CARDIAC COMPUTED TOMOGRAPHY ANGIOGRAPHY DATE: January 10, 2018 INDICATION: Aortic stenosis. COMPARISON: None TECHNIQUE: Contrast imaging was performed on a [place] [address] scanner utilizing a single [...] the right heart chambers. Ejection Fraction: 42% VXZ=438 cc ESV=82 cc SV=59 cc Lung ordoñez to the extent visualized in limited study: Please see radiologist interpretation for extracardiac findings. IMPRESSION: Aortic valve disease. Coronary artery disease, status post PCI of the LAD and RCA, without evidence of flow-limiting stenosis. 01/09/2018 - - Read by: Braden Lee MD Dictated Date/time: 01/10/18 17:02 Electronically Signed by: Braden Lee MD 01/10/18 17:20 FINAL REPORT [facility] Retroperitoneal limited US Retroperitoneal limited US EXAM: [...] Kodi Trevino MD 01/09/18 07:48 FINAL REPORT [facility] Chest 1view DX Chest 1view DX EXAM: [...] - This report was dictated by a Business Continuity Manager/Fellow. I have personally reviewed the images as well as the Resident's interpretation and agree with the findings. Read by: Sukumar Koenig MD Resident: Sukumar Koenig MD Dictated Date/time: 01/07/18 11:39 Electronically Signed by: Terry Domingo MD 01/07/18 11:51 FINAL REPORT [facility] Vital Signs Vital Sign Value Date Comments Source Encounters Location Location Details Encounter Type Encounter Number Reason For Visit Attending Provider ADM Date DC Date Status Source [facility] [place] [facility] Di[facility] Services [id number] Colby Arambula 03/09/2014 03/10/2014 [facility] [place] [facility] [id number] GEORGE GAMBOA 01/29/2018 Active [facility] [id number] GEORGE GAMBOA 02/19/2018 Active [facility] Procedures Procedure Code Date Perfomer Comments Source
--- NOTE | 2018-06-23 13:01 | Diagnostic Imaging Report ---
Exam: Left hip radiographs-2 views; pelvis radiograph-1 view History: Status post fall with pain. Comparison: KUB 02/07/2018. Findings: There is diffuse osteopenia, somewhat limiting evaluation for fracture. No evidence of acute displaced fracture or malalignment within the left hip or pelvis. Bowel gas partially obscures visualization of the sacrum. There are moderate right and mild left hip degenerative changes. Surgical clips project over the right inguinal region. There are atherosclerotic vascular calcifications. Impression: No evidence of acute displaced fracture or malalignment. Diffuse osteopenia. Signed by: Dr. Rashida Vargas MD on 06/23/2018 12:57 PM
[2018-06-23] MEDS ORDERED: ACETAMINOPHEN 325 MG TAB PO ONE (13:30)
--- NOTE | 2018-06-23 14:10 | Diagnostic Imaging Report ---
EXAM: CT Pelvis WITHOUT contrast INDICATION: Status post fall with left hip and pelvic pain. COMPARISON: Left hip and pelvic radiographs 06/23/2018. TECHNIQUE: Pelvis were scanned utilizing a multidetector helical scanner from the iliac crest to the pubic symphysis without administration of IV contrast. Coronal and sagittal reformations were obtained. Routine protocol was performed. IV CONTRAST: None. RADIATION DOSE: Total DLP: 402.9 mGy*cm Dose modulation, iterative reconstruction, and/or weight based adjustment of the mA/kV was utilized to reduce the radiation dose to as low as reasonably achievable. COMPLICATIONS: None FINDINGS: There is diffuse osteopenia, somewhat limiting evaluation for fracture. No evidence of acute displaced fracture or malalignment within the pelvis. There are moderate right and mild left hip degenerative changes. There are extensive atherosclerotic vascular calcifications. There are postsurgical changes involving the right inguinal region. The prostate is enlarged, measuring up to 6 cm. There is apparent mild thickening of the rectum with perirectal/presacral stranding. IMPRESSION: No acute osseous abnormality. No evidence of pelvic fracture. Apparent mild thickening of the rectum with some perirectal/presacral stranding. Suggest clinical correlation for proctitis. This would also be amenable to direct inspection. Signed by: Dr. Rashida Vargas MD on 06/23/2018 2:07 PM
--- NOTE | 2018-06-23 14:12 | NUR ---
MEDICATED FOR FOR LEFT HIP PAIN WITH 975MG OF TYLENOL
--- NOTE | 2018-06-23 16:00 | Diagnostic Imaging Report ---
EXAMINATION: CHEST SINGLE (PORTABLE) INDICATION: Status post fall. COMPARISON: Chest radiograph 02/01/2018. FINDINGS: Artifact noted with linear lucency overlying the mid thorax. TUBES and LINES: Left-sided single lead AICD with lead projecting over the right ventricle. LUNGS: Lungs are well inflated. Lungs are clear. There is no evidence of pneumonia or pulmonary edema. PLEURA: No pleural effusion or pneumothorax. HEART AND MEDIASTINUM: The cardiomediastinal silhouette is unremarkable. Atherosclerotic calcification of the aortic arch. BONES AND SOFT TISSUES: No acute osseous abnormality. UPPER ABDOMEN: No free air under the diaphragm. IMPRESSION: No acute radiographic abnormality. Signed by: Dr. Rashida Vargas MD on 06/23/2018 3:57 PM
[2018-06-23 16:07] LABS: BACTERIA,URINE FEW /HPF; BILIRUBIN,URINE NEGATIVE (NEGATIVE); CLARITY,URINE CLEAR (CLEAR); COLOR,URINE YELLOW (YELLOW); EPITHELIAL CELLS,URINE FEW /LPF; KETONES,URINE NEGATIVE (NEGATIVE); LEUKOCYTE ESTERASE ,URINE NEGATIVE (NEGATIVE); NITRITE,URINE NEGATIVE (NEGATIVE); PROTEIN,URINE DIPSTICK NEGATIVE (NEGATIVE); URINE UROBILINOGEN 0.2 mg/dL (0.2 - 1)
--- NOTE | 2018-06-23 16:12 | Diagnostic Imaging Report ---
Exam: Head CT without contrast History: Trauma, fall Comparison studies: None Technique: Axial images were obtained from the skull base to the vertex. Coronal and sagittal images reconstructed from the axial data. Dose modulation, iterative reconstruction, and/or weight based adjustment of the mA/kV was utilized to reduce the radiation dose to as low as reasonably achievable. Radiation dose: Total DLP: 921 mGy*cm. Estimated effective dose: DLP x 0.015 Intravenous contrast: None Findings: Scalp: No abnormalities. Bones: No fractures, blastic or lytic lesions. Brain sulci: Mildly prominent. Ventricles: Mild compensatory dilatation. No hydrocephalus. Extra-axial spaces: No masses, no fluid collection. Parenchyma: Mild age-related hypodense white matter changes in the periventricular white matter. No masses, acute hemorrhage or acute or chronic cortical insult. Sellar/suprasellar region: No abnormalities. Craniocervical junction: Patent foramen magnum. No Chiari one malformation. Included paranasal sinuses: Left posterior ethmoids are partially opacified. Partially imaged left maxillary sinus is partially opacified and contains small secretions/fluid. Mild mucosal thickening in the left sphenoid sinus. Incidental findings: Bilateral lens replacements for previous cataract surgery. Atherosclerotic calcifications in the carotid siphons. Chronic inflammatory changes in the mastoids bilaterally which are partially opacified, underpneumatized and with sclerotic changes. IMPRESSION: 1. No acute intracranial abnormalities. 2. Mild generalized brain volume loss. 3. Incidental nonspecific paranasal sinus inflammatory changes. Signed by: Dr. aMtthew Mayer M.D. on 06/23/2018 4:09 PM
[2018-06-23 16:17] LABS: BASOPHILS % 0.2 % (0.0-1.0); EOSINOPHILS # (AUTO) 0.2 (0.0-0.4); EOSINOPHILS % 2.2 % (0.0-6.0); HEMATOCRIT 28.4 % (38.2-49.6); HEMOGLOBIN 8.7 g/dL (14.0-18.0); LYMPHOCYTES # (AUTO) 2.3 (1.0-3.2); LYMPHOCYTES % 25.1 % (18.0-39.1); MEAN CORPUSCULAR HEMOGLOBIN 29.6 pg (28-32); MEAN CORPUSCULAR HGB CONC 30.6 g/dL (31-35); MEAN CORPUSCULAR VOLUME 96.6 fL (81-99); MONOCYTES # (AUTO) 0.6 (0.2-0.8); MONOCYTES % 6.9 % (4.4-11.3); NEUTROPHILS % 65.1 % (38.7-80.0); PLATELET COUNT 175 x10e3/uL (140-360); RED BLOOD COUNT 2.94 x10e6/uL (4.3-5.7); RED CELL DISTRIBUTION WIDTH 20.3 % (11.7-14.4)
[2018-06-23 16:31] LABS: ALBUMIN 3.1 g/dL (3.5-5.0); ALBUMIN/GLOBULIN RATIO 0.8 (0.8-2.0); ANION GAP 15.1 mmol/L (8-16); CALCIUM 9.5 mg/dL (8.4-10.2); CREATININE, SERUM 1.16 mg/dL (0.72-1.25); MAGNESIUM 2.1 MG/DL (1.3-2.1); POTASSIUM 4.1 mmol/L (3.5-5.1)
[2018-06-23 16:37] LABS: CREATINE KINASE MB 0.8 ng/mL (0-5.0)
[2018-06-23 16:58] LABS: INR 3.44; PROTHROMBIN TIME 35.4 seconds (11.9-14.5)
[2018-06-23 16:59] LABS: PARTIAL THROMBOPLASTIN TIME 82.5 seconds (23.8-35.5)
[2018-06-23] MEDS ORDERED: DEXTROSE 50% SYRINGE 50 ML IV PRN (17:00)
--- NOTE | 2018-06-23 20:19 | NUR ---
Pt received from ER. Pt A&O and in no apparent distress. Pt at bedside. Pt has visible bruises post fall.All safety measures ensured, bed alarm on, and call lindsay near. Pt encouraged to use call lindsay for assistance.
[2018-06-23 20:30] VITALS: BP 143/60
[2018-06-23] MEDS ORDERED: CEFTRIAXONE SOD 1 GM/NS 50 ML 50 ML IV ONE (20:30)
[2018-06-23 21:18] VITALS: BP 143/60
[2018-06-23] MEDS: INSULIN REGULAR, HUMAN 100 UNIT/1 ML 3ML VIAL SQ SCH (21:32)
[2018-06-23] MEDS: ACETAMINOPHEN 325 MG TAB PO PRN (22:25)
[2018-06-24] VITALS (7 sets, daily range): BP systolic 95–119; BP diastolic 53–67
--- NOTE | 2018-06-24 03:50 | NUR ---
Dr. Tyesha brown; Gave order to pt to try Toradol 30 mg IV once and then call him to see if pt pain relieved.
[2018-06-24] MEDS ORDERED: KETOROLAC TROMETHAMINE 30 MG/ML VIAL IV STA (04:17)
--- NOTE | 2018-06-24 06:10 | NUR ---
Contacted Dr. Arambula to report pt pain relieved by Toradol. MD order to give another one time dose of Toradol 30 mg IV once in 8 hrs from last dose.
--- NOTE | 2018-06-24 06:31 | NUR ---
Pt received bed bath
[2018-06-24] MEDS: INSULIN REGULAR, HUMAN 100 UNIT/1 ML 3ML VIAL SQ SCH ×4 (07:30→22:47)
[2018-06-24] MEDS: ACETAMINOPHEN 325 MG TAB PO PRN ×2 (08:06→17:53)
[2018-06-24] MEDS ORDERED: ATORVASTATIN 10 MG TAB PO SCH (09:00)
[2018-06-24] MEDS ORDERED: FENOFIBRATE 145 MG TAB PO SCH (09:00)
[2018-06-24] MEDS: TORSEMIDE 10 MG TAB PO SCH ×2 (09:15→17:53)
[2018-06-24] MEDS: TAMSULOSIN HCL 0.4 MG CAP PO SCH (09:15)
[2018-06-24] MEDS: REPAGLINIDE 1 MG TAB PO SCH (09:15)
[2018-06-24] MEDS: FINASTERIDE 5 MG TAB PO SCH (09:15)
[2018-06-24] MEDS: ALLOPURINOL 100 MG TAB PO SCH (09:15)
[2018-06-24] MEDS: CLOPIDOGREL BISULFATE 75 MG TAB PO SCH (09:15)
[2018-06-24] MEDS: AMLODIPINE BESYLATE 5 MG TAB PO SCH (09:15)
[2018-06-24] MEDS: DOCUSATE SODIUM 100 MG CAP PO SCH ×2 (09:15→17:53)
[2018-06-24] MEDS: ASPIRIN 81 MG CHEW TAB PO SCH (09:15)
[2018-06-24] MEDS: METOPROLOL TARTRATE 25 MG TAB PO SCH (09:15)
--- NOTE | 2018-06-24 09:19 | NUR ---
SOCIAL WORK INITIAL ASSESSMENT Chief Maintenance Supervisor to bedside to discuss plan of care with patient/family. CM/SW role and care transitions discussed. Anticipated discharge plan discussed along with duration of care. CM/SW discussed patients right to make decisions in care. CM/SW work hours given. Patient lives: IN HOUSE WITH Admit/Transfer: VIA ED FELL AT HOME POA/Emergency contact: MARIELA [phone] Current/Previous Home Health: NONE PCP/Follow-up Care: MARGARITO Current/Previous DME: [facility] Other Services: NONE Employment Status: RETIRED Areas of Concerns: JUST RELEASED FROM [facility] ON SUNDAY FELL SUNDAY, STATES WAS THERE FROM Apr TO JUNE 14. Referral Needs: UNKNOWN AT THIS TIME STATES NOT SURE IF HOME HEALTH IS ASSIGNED Education Needs: NA [facility]MM/[place] given and signed (if applicable): UPON ADMISSION Goal for discharge: WANTS TO RETURN HOME CM/SW left business card at the bedside with contact information. Name and number was also written on the patients whiteboard. Patient verbalized understanding of discussion. CM will follow-up with ongoing discharge and transition of care needs.
[2018-06-24] MEDS ORDERED: KETOROLAC TROMETHAMINE 30 MG/ML VIAL IV ONE (12:30)
--- NOTE | 2018-06-24 18:37 | NUR ---
Family spoke with nurse in regards to pt's past/recent condition. Pt had heart valve replacement in Dec, two months later had UTI that lead to causing pt being septic, severe condition. Family has concerns regarding pt's condition.
--- NOTE | 2018-06-24 19:00 | NUR ---
received report from day nurse. patient is resting comfortably in bed. bed is in lowest position and call lindsay is within reach. will continue to help patient.
[2018-06-24] MEDS ORDERED: ATORVASTATIN 40 MG TAB PO SCH (21:00)
[2018-06-25] VITALS: BP 105/52
[2018-06-25] MEDS: MORPHINE SULFATE INJ 4 MG/ML INJ 1ML IV PRN ×2 (02:39→09:50)
[2018-06-25 04:00] VITALS: BP 111/58
[2018-06-25] MEDS: INSULIN REGULAR, HUMAN 100 UNIT/1 ML 3ML VIAL SQ SCH (07:30)
[2018-06-25 07:40] VITALS: BP 109/51
[2018-06-25] MEDS: ASPIRIN 81 MG CHEW TAB PO SCH (08:28)
[2018-06-25] MEDS: METOPROLOL TARTRATE 25 MG TAB PO SCH (08:28)
[2018-06-25] MEDS: REPAGLINIDE 1 MG TAB PO SCH (08:28)
[2018-06-25] MEDS: CLOPIDOGREL BISULFATE 75 MG TAB PO SCH (08:28)
[2018-06-25] MEDS: TORSEMIDE 10 MG TAB PO SCH (08:28)
[2018-06-25] MEDS: DOCUSATE SODIUM 100 MG CAP PO SCH (08:28)
[2018-06-25] MEDS: ALLOPURINOL 100 MG TAB PO SCH (08:28)
[2018-06-25] MEDS: AMLODIPINE BESYLATE 5 MG TAB PO SCH (08:28)
[2018-06-25] MEDS: FINASTERIDE 5 MG TAB PO SCH (08:28)
[2018-06-25] MEDS ORDERED: FENOFIBRATE 145 MG TAB PO SCH (09:00)
[2018-06-25] MEDS: TAMSULOSIN HCL 0.4 MG CAP PO SCH (10:55)
[2018-06-25 11:35] VITALS: BP_SYST 116
[2018-06-25] MEDS: ACETAMINOPHEN 325 MG TAB PO PRN (12:48)
[2018-06-25 12:53] VITALS: BP 116/51
--- NOTE | 2018-06-25 15:04 | NUR ---
patient discharged home, AAOx3, Not in any distress, prescription given, IV canula removed with tip intact, no ss of infiltration noted, at bed side taking him home, she aware about f/up appointments, transported via wheelchair to [facility]
--- NOTE | 2018-06-26 19:48 | Discharge Summary ---
DISCHARGE DIAGNOSIS: Left hip pain. HISTORY OF PRESENT ILLNESS: The patient is a gentleman, who fell at home and sustained a left hip pain, was brought into the Emergency Room, x-rays were negative, CT scan was negative, but due to inability to stand, he was then admitted for further evaluation. When I saw the patient on rounds, it appeared to be more soft tissue in nature considering the negative radiographs. I gave him a shot of Toradol, which made a significant improvement in his pain about 80%, where he could then mobilize and ambulate a lot easier. He did require few extra doses over the next 24 hours, but by the time of discharge, he was feeling significantly better, probably overall about 85% better. We told him soft tissue injuries can take weeks to heal, so he was discharged home with diclofenac p.o. as well as rest in order to get the hip to heal. The patient did not want any snf facility, so he was transferred home per his wishes and he will follow up in 1-2 weeks with me. Please see hospital chart for full details. MD GLORIA Ahumada/KATHLEEN /[id number]
== END 2018-06-25 14:52 | disposition home or self-care (01) ==
LOC: ER 11:36 → ERHOLD 17:02 → IMCU 21:34
PROVIDERS: ADMIT Internal Medicine; ATTEND Internal Medicine
DX: S76.012A Strain of muscle, fascia and tendon of left hip, initial encounter (principal); E11.9 Type 2 diabetes mellitus without complications; I10 Essential (primary) hypertension; D64.9 Anemia, unspecified; I82.409 Acute embolism and thrombosis of unspecified deep veins of unspecified lower extremity; I25.10 Atherosclerotic heart disease of native coronary artery without angina pectoris; M19.90 Unspecified osteoarthritis, unspecified site; I73.9 Peripheral vascular disease, unspecified; Z82.49 Family history of ischemic heart disease and other diseases of the circulatory system; Z91.048 Other nonmedicinal substance allergy status; Z79.82 Long term (current) use of aspirin; I25.2 Old myocardial infarction; W01.0XXA Fall on same level from slipping, tripping and stumbling without subsequent striking against object, initial encounter; Y93.89 Activity, other specified; Y92.018 Other place in single-family (private) house as the place of occurrence of the external cause
CPT/HCPCS: 36415 ×3; 70450; 71045; 72192; 73502; 80053; 81001; 82550; 82553; 82948 ×2; 83735; 83880; 84484; 85025; 85610; 85730; 87086; 87186; 93005; 97116; 97162; 99284; G0378 ×3; J0696; J1885; J2270

== ENCOUNTER → 2020-02-20 | Outpatient (CLI) | payer MEDICARE, OTHER ==
--- NOTE | 2020-02-20 16:02 | Diagnostic Imaging Report ---
EXAMINATION: CHEST 2 VIEWS INDICATION: Shortness of breath COMPARISON: Chest radiograph 06/23/2018 FINDINGS: LINES/TUBES:Left chest AICD. Cardiac valvular prosthesis. LUNGS:The lungs are well-inflated. No focal consolidation or pulmonary edema. Right apical subcentimeter calcified granulomas. PLEURA:No pleural effusion or pneumothorax. MEDIASTINUM:The cardiomediastinal silhouette appears normal in size and shape. Atherosclerotic calcifications of the thoracic aorta. BONES/SOFT TISSUES:No acute osseous injury. ABDOMEN:No free air under the diaphragm. IMPRESSION: No focal pneumonia or pulmonary edema. Signed by: Bar Dickey MD on 02/20/2020 3:59 PM
== END ==
LOC: RAD 15:22
PROVIDERS: ATTEND Internal Medicine
DX: R06.02 Shortness of breath (principal)
CPT/HCPCS: 71046

== ENCOUNTER → 2020-04-26 | Outpatient (CLI) | payer MEDICARE ==
[2020-04-26 12:30] LABS: CREATININE, SERUM 2.23 mg/dL (0.72-1.25)
== END ==
LOC: CT 11:24
PROVIDERS: ATTEND Internal Medicine
DX: I77.9 Disorder of arteries and arterioles, unspecified (principal)
CPT/HCPCS: 36415; 82565; 84520

== ENCOUNTER 2020-11-12 15:24 | Inpatient (IN) | payer MEDICARE, OTHER ==
[~2020-11-12] VITALS: Ht 182.9 cm; Wt 96.2 kg
[2020-11-12 16:02] LABS: BASOPHILS % 0.2 % (0.0-1.0); EOSINOPHILS # (AUTO) 0.2 (0.0-0.4); EOSINOPHILS % 3.7 % (0.0-6.0); HEMATOCRIT 40.7 % (38.2-49.6); HEMOGLOBIN 13.6 g/dL (14.0-18.0); LYMPHOCYTES # (AUTO) 0.7 (1.0-3.2); LYMPHOCYTES % 11.4 % (18.0-39.1); MEAN CORPUSCULAR HEMOGLOBIN 32.6 pg (28-32); MEAN CORPUSCULAR HGB CONC 33.4 g/dL (31-35); MEAN CORPUSCULAR VOLUME 97.6 fL (81-99); MONOCYTES # (AUTO) 0.3 (0.2-0.8); MONOCYTES % 5.5 % (4.4-11.3); NEUTROPHILS # (AUTO) 4.7 (2.1-6.9); NEUTROPHILS % 78.2 % (38.7-80.0); PLATELET COUNT 154 x10e3/uL (140-360); RED BLOOD COUNT 4.17 x10e6/uL (4.3-5.7); RED CELL DISTRIBUTION WIDTH 13.3 % (11.7-14.4)
[2020-11-12 16:13] LABS: INR 1.01; PROTHROMBIN TIME 13.5 seconds (11.9-14.5)
[2020-11-12 16:14] LABS: PARTIAL THROMBOPLASTIN TIME 29.7 seconds (23.8-35.5)
[2020-11-12 16:24] LABS: ALBUMIN 2.8 g/dL (3.5-5.0); ALBUMIN/GLOBULIN RATIO 0.6 (0.8-2.0); ANION GAP 17.2 mmol/L (8-16); CALCIUM 10.2 mg/dL (8.4-10.2); CREATININE, SERUM 1.78 mg/dL (0.72-1.25); MAGNESIUM 1.8 MG/DL (1.3-2.1)
[2020-11-12 16:28] LABS: POTASSIUM 5.2 mmol/L (3.5-5.1)
[2020-11-12 16:30] LABS: CREATINE KINASE MB 0.9 ng/mL (0-5.0)
[2020-11-12] MEDS ORDERED: INSULIN REGULAR, HUMAN 100 UNIT/1 ML IV ONE (16:45)
[2020-11-12] MEDS ORDERED: SODIUM CHLORIDE 0.9% 500ML 500 ML IV ONE (16:45)
[2020-11-12] MEDS ORDERED: SODIUM CHLORIDE FLUSH 10 ML SYR INJ PRN (18:30)
[2020-11-12] MEDS ORDERED: FUROSEMIDE INJ 10 MG/ML 4 ML VIAL IV SCH (18:30)
[2020-11-12] MEDS ORDERED: DEXTROSE 50% SYRINGE 50 ML IV PRN (18:30)
[2020-11-12] MEDS ORDERED: INSULIN REGULAR, HUMAN 100 UNIT/1 ML SQ SCH (21:00)
[2020-11-13] VITALS (10 sets, daily range): BP systolic 121–140; BP diastolic 74–92
[2020-11-13 01:20] LABS: CREATINE KINASE MB 0.9 ng/mL (0-5.0)
[2020-11-13 07:27] LABS: BASOPHILS % 0.2 % (0.0-1.0); EOSINOPHILS # (AUTO) 0.2 (0.0-0.4); EOSINOPHILS % 3.8 % (0.0-6.0); HEMATOCRIT 39.1 % (38.2-49.6); HEMOGLOBIN 12.8 g/dL (14.0-18.0); LYMPHOCYTES # (AUTO) 0.7 (1.0-3.2); LYMPHOCYTES % 13.6 % (18.0-39.1); MEAN CORPUSCULAR HEMOGLOBIN 31.9 pg (28-32); MEAN CORPUSCULAR HGB CONC 32.7 g/dL (31-35); MEAN CORPUSCULAR VOLUME 97.5 fL (81-99); MONOCYTES # (AUTO) 0.3 (0.2-0.8); MONOCYTES % 6.6 % (4.4-11.3); NEUTROPHILS # (AUTO) 3.7 (2.1-6.9); PLATELET COUNT 128 x10e3/uL (140-360); RED BLOOD COUNT 4.01 x10e6/uL (4.3-5.7); RED CELL DISTRIBUTION WIDTH 13.3 % (11.7-14.4)
[2020-11-13 07:46] LABS: ALBUMIN 2.5 g/dL (3.5-5.0); ALBUMIN/GLOBULIN RATIO 0.6 (0.8-2.0); ANION GAP 14.1 mmol/L (8-16); CALCIUM 9.7 mg/dL (8.4-10.2); CREATININE, SERUM 1.5 mg/dL (0.72-1.25); POTASSIUM 4.1 mmol/L (3.5-5.1)
[2020-11-13] MEDS ORDERED: FENOFIBRATE 145 MG TAB PO SCH (09:00)
[2020-11-13] MEDS: ASPIRIN 81 MG CHEW TAB PO SCH (09:57)
[2020-11-13] MEDS: CLOPIDOGREL BISULFATE 75 MG TAB PO SCH (09:57)
[2020-11-13] MEDS: FUROSEMIDE INJ 10 MG/ML 4 ML VIAL IV SCH ×2 (09:57→16:46)
[2020-11-13] MEDS: DOCUSATE SODIUM 100 MG CAP PO SCH ×2 (09:57→16:46)
[2020-11-13] MEDS: METOPROLOL TARTRATE 25 MG TAB PO SCH (09:57)
[2020-11-13] MEDS: AMLODIPINE BESYLATE 5 MG TAB PO SCH (09:58)
[2020-11-13] MEDS: ALLOPURINOL 100 MG TAB PO SCH (09:58)
[2020-11-13] MEDS: FINASTERIDE 5 MG TAB PO SCH (09:58)
[2020-11-13] MEDS ORDERED: DEXTROSE 50% SYRINGE 50 ML IV PRN (10:00)
[2020-11-13] MEDS: INSULIN REGULAR, HUMAN 100 UNIT/1 ML SQ SCH ×3 (11:30→20:58)
[2020-11-13] MEDS: FERROUS GLUCONATE 324 MG PO SCH (16:47)
[2020-11-13 17:22] LABS: CLARITY,URINE HAZY (CLEAR); COLOR,URINE YELLOW (YELLOW); LEUKOCYTE ESTERASE ,URINE NEGATIVE (NEGATIVE); NITRITE,URINE NEGATIVE (NEGATIVE); PROTEIN,URINE DIPSTICK NEGATIVE (NEGATIVE)
[2020-11-13 17:23] LABS: KETONES,URINE NEGATIVE (NEGATIVE); URINE UROBILINOGEN 0.2 mg/dL (0.2 - 1)
[2020-11-13 17:25] LABS: BACTERIA,URINE FEW /HPF; EPITHELIAL CELLS,URINE FEW /LPF; RBC,URINE 0-5 /HPF (0-5); WBC,URINE (MAN) 0-5 /HPF (0-5)
[2020-11-13] MEDS: TAMSULOSIN HCL 0.4 MG CAP PO SCH (20:17)
[2020-11-13] MEDS: ATORVASTATIN 40 MG TAB PO SCH (20:17)
[2020-11-13] MEDS: FENOFIBRATE 145 MG TAB PO SCH (20:17)
[2020-11-14] VITALS (8 sets, daily range): BP systolic 114–131; BP diastolic 67–83
[2020-11-14] MEDS: FUROSEMIDE INJ 10 MG/ML 4 ML VIAL IV SCH ×2 (08:42→16:43)
[2020-11-14] MEDS: ASPIRIN 81 MG CHEW TAB PO SCH (08:42)
[2020-11-14] MEDS: DOCUSATE SODIUM 100 MG CAP PO SCH ×2 (08:43→16:43)
[2020-11-14] MEDS: METOPROLOL TARTRATE 25 MG TAB PO SCH (08:43)
[2020-11-14] MEDS: AMLODIPINE BESYLATE 5 MG TAB PO SCH (08:43)
[2020-11-14] MEDS: FERROUS GLUCONATE 324 MG PO SCH ×2 (08:43→16:43)
[2020-11-14] MEDS: CLOPIDOGREL BISULFATE 75 MG TAB PO SCH (08:43)
[2020-11-14] MEDS: FINASTERIDE 5 MG TAB PO SCH (08:43)
[2020-11-14] MEDS: ALLOPURINOL 100 MG TAB PO SCH (08:44)
[2020-11-14] MEDS: INSULIN REGULAR, HUMAN 100 UNIT/1 ML SQ SCH ×4 (10:58→21:13)
[2020-11-14 12:53] LABS: ANION GAP 16.9 mmol/L (8-16); CALCIUM 9.8 mg/dL (8.4-10.2); CREATININE, SERUM 1.77 mg/dL (0.72-1.25); POTASSIUM 3.9 mmol/L (3.5-5.1)
[2020-11-14] MEDS: ENOXAPARIN 30 MG/0.3 ML SYR SC SCH (16:43)
[2020-11-14] MEDS: TAMSULOSIN HCL 0.4 MG CAP PO SCH (21:11)
[2020-11-14] MEDS: FENOFIBRATE 145 MG TAB PO SCH (21:11)
[2020-11-14] MEDS: ATORVASTATIN 40 MG TAB PO SCH (21:11)
[2020-11-15] VITALS (8 sets, daily range): BP systolic 117–123; BP diastolic 70–81
[2020-11-15 04:59] LABS: BASOPHILS % 0.4 % (0.0-1.0); EOSINOPHILS # (AUTO) 0.2 (0.0-0.4); EOSINOPHILS % 4.2 % (0.0-6.0); HEMATOCRIT 39.2 % (38.2-49.6); HEMOGLOBIN 13.1 g/dL (14.0-18.0); LYMPHOCYTES # (AUTO) 0.6 (1.0-3.2); LYMPHOCYTES % 13.7 % (18.0-39.1); MEAN CORPUSCULAR HEMOGLOBIN 32.3 pg (28-32); MEAN CORPUSCULAR HGB CONC 33.4 g/dL (31-35); MEAN CORPUSCULAR VOLUME 96.8 fL (81-99); MONOCYTES # (AUTO) 0.3 (0.2-0.8); MONOCYTES % 6.2 % (4.4-11.3); NEUTROPHILS # (AUTO) 3.4 (2.1-6.9); NEUTROPHILS % 74.8 % (38.7-80.0); PLATELET COUNT 156 x10e3/uL (140-360); RED BLOOD COUNT 4.05 x10e6/uL (4.3-5.7); RED CELL DISTRIBUTION WIDTH 13.1 % (11.7-14.4)
[2020-11-15 05:17] LABS: ANION GAP 16.1 mmol/L (8-16); CALCIUM 9.8 mg/dL (8.4-10.2); CREATININE, SERUM 1.53 mg/dL (0.72-1.25); POTASSIUM 4.1 mmol/L (3.5-5.1)
[2020-11-15] MEDS: INSULIN REGULAR, HUMAN 100 UNIT/1 ML SQ SCH ×4 (07:30→21:00)
[2020-11-15] MEDS: FUROSEMIDE INJ 10 MG/ML 4 ML VIAL IV SCH ×2 (08:28→16:26)
[2020-11-15] MEDS: FERROUS GLUCONATE 324 MG PO SCH ×2 (08:29→16:09)
[2020-11-15] MEDS: AMLODIPINE BESYLATE 5 MG TAB PO SCH (08:31)
[2020-11-15] MEDS: FINASTERIDE 5 MG TAB PO SCH (08:31)
[2020-11-15] MEDS: METOPROLOL TARTRATE 25 MG TAB PO SCH (08:31)
[2020-11-15] MEDS: ASPIRIN 81 MG CHEW TAB PO SCH (08:31)
[2020-11-15] MEDS: ALLOPURINOL 100 MG TAB PO SCH (08:31)
[2020-11-15] MEDS: DOCUSATE SODIUM 100 MG CAP PO SCH ×2 (08:31→16:26)
[2020-11-15] MEDS: CLOPIDOGREL BISULFATE 75 MG TAB PO SCH (08:31)
[2020-11-15] MEDS: ENOXAPARIN 30 MG/0.3 ML SYR SC SCH (16:26)
[2020-11-15] MEDS: FENOFIBRATE 145 MG TAB PO SCH (21:07)
[2020-11-15] MEDS: TAMSULOSIN HCL 0.4 MG CAP PO SCH (21:07)
[2020-11-15] MEDS: ATORVASTATIN 40 MG TAB PO SCH (21:07)
[2020-11-16] VITALS (8 sets, daily range): BP systolic 107–138; BP diastolic 74–84
[2020-11-16] MEDS: INSULIN REGULAR, HUMAN 100 UNIT/1 ML SQ SCH ×4 (07:30→22:40)
[2020-11-16] MEDS: FERROUS GLUCONATE 324 MG PO SCH ×2 (08:46→16:17)
[2020-11-16] MEDS: FUROSEMIDE INJ 10 MG/ML 4 ML VIAL IV SCH ×2 (08:46→16:17)
[2020-11-16] MEDS: DOCUSATE SODIUM 100 MG CAP PO SCH ×2 (08:51→16:17)
[2020-11-16] MEDS: ASPIRIN 81 MG CHEW TAB PO SCH (08:51)
[2020-11-16] MEDS: ALLOPURINOL 100 MG TAB PO SCH (08:52)
[2020-11-16] MEDS: FINASTERIDE 5 MG TAB PO SCH (08:52)
[2020-11-16] MEDS: METOPROLOL TARTRATE 25 MG TAB PO SCH (08:52)
[2020-11-16] MEDS: CLOPIDOGREL BISULFATE 75 MG TAB PO SCH (08:52)
[2020-11-16] MEDS ORDERED: BISACODYL 5 MG TAB EC PO PRN (11:00)
[2020-11-16 12:38] LABS: ANION GAP 15.1 mmol/L (8-16); CALCIUM 9.7 mg/dL (8.4-10.2); CREATININE, SERUM 1.59 mg/dL (0.72-1.25); POTASSIUM 4.1 mmol/L (3.5-5.1)
[2020-11-16] MEDS: ENOXAPARIN 30 MG/0.3 ML SYR SC SCH (16:17)
[2020-11-16] MEDS: TAMSULOSIN HCL 0.4 MG CAP PO SCH (22:40)
[2020-11-16] MEDS: FENOFIBRATE 145 MG TAB PO SCH (22:40)
[2020-11-16] MEDS: ATORVASTATIN 40 MG TAB PO SCH (22:40)
[2020-11-17] VITALS: BP 129/76
[2020-11-17 04:00] VITALS: BP 107/89
[2020-11-17 08:03] VITALS: BP 131/84
[2020-11-17 08:08] VITALS: BP 131/84
[2020-11-17] MEDS: FERROUS GLUCONATE 324 MG PO SCH (09:00)
[2020-11-17] MEDS: INSULIN REGULAR, HUMAN 100 UNIT/1 ML SQ SCH (09:08)
[2020-11-17] MEDS: FINASTERIDE 5 MG TAB PO SCH (09:08)
[2020-11-17] MEDS: DOCUSATE SODIUM 100 MG CAP PO SCH (09:08)
[2020-11-17] MEDS: ASPIRIN 81 MG CHEW TAB PO SCH (09:08)
[2020-11-17] MEDS: FUROSEMIDE INJ 10 MG/ML 4 ML VIAL IV SCH (09:08)
[2020-11-17] MEDS: ALLOPURINOL 100 MG TAB PO SCH (09:08)
[2020-11-17] MEDS: CLOPIDOGREL BISULFATE 75 MG TAB PO SCH (09:08)
[2020-11-17 12:05] VITALS: BP 127/87
== END 2020-11-17 12:06 | DRG 291 ==
LOC: ER 15:49 → MED/SURG 11-13 01:41 → ER 11-13 01:45 → MED/SURG 11-13 01:45 → ER 11-13 09:57 → MED/SURG 11-13 09:58 → OBSVTOIN 11-14 15:33
PROVIDERS: ADMIT Internal Medicine; ATTEND Internal Medicine
DX: I13.0 Hypertensive heart and chronic kidney disease with heart failure and stage 1 through stage 4 chronic kidney disease, or unspecified chronic kidney disease (principal); J96.01 Acute respiratory failure with hypoxia; I50.23 Acute on chronic systolic (congestive) heart failure; Z95.810 Presence of automatic (implantable) cardiac defibrillator; I25.10 Atherosclerotic heart disease of native coronary artery without angina pectoris; I65.29 Occlusion and stenosis of unspecified carotid artery; Z86.718 Personal history of other venous thrombosis and embolism; Z79.01 Long term (current) use of anticoagulants; E78.5 Hyperlipidemia, unspecified; Z95.2 Presence of prosthetic heart valve; I27.20 Pulmonary hypertension, unspecified; E11.22 Type 2 diabetes mellitus with diabetic chronic kidney disease; N18.30 Chronic kidney disease, stage 3 unspecified; N40.0 Benign prostatic hyperplasia without lower urinary tract symptoms; Z20.822 Contact with and (suspected) exposure to COVID-19
CPT/HCPCS: 36415; 71045; 78580; 80048; 80053; 81001; 82550; 82553; 82948; 83735; 83880; 84484; 85025; 85610; 85730; 87086; 93005; 96372; 97139; 99284; A9540; G0378; J1650; J1817; J1940; J7040; U0002